=== PATIENT | female | born 1970 | race Caucasian/White ===

== ENCOUNTER → 2017-10-17 07:49 | Outpatient (CLI) | payer OTHER, SELFPAY ==
[2017-10-17 09:21] LABS: AST(SGOT) 12 U/L (15-37); Alanine Aminotransfer ALT/SGPT 35 U/L (13-56); Albumin, Serum 3.4 g/dL (3.2-5.0); Alkaline Phosphatase 69 U/L (45-117); Cholesterol 282 mg/dL (200); Globulin 3.9 g/dL (2.2-4.2); High Density Lipoprotein 37 mg/dL; Protein, Total 7.3 g/dL (6.4-8.2); Triglycerides 1469 mg/dL
== END ==
PROVIDERS: Family Provider Family Medicine; PCP Family Medicine; Visit Provider Internal Medicine Cardiovascular Disease
DX: E78.5 Hyperlipidemia, unspecified (principal); Z79.899 Other long term (current) drug therapy
CPT/HCPCS: 36415; 80061; 80076

== ENCOUNTER → 2018-02-13 08:18 | Outpatient (CLI) | payer OTHER, SELFPAY ==
[2018-02-13 09:19] LABS: AST(SGOT) 17 U/L (15-37); Alanine Aminotransfer ALT/SGPT 26 U/L (13-56); Albumin, Serum 3.5 g/dL (3.2-5.0); Alkaline Phosphatase 62 U/L (45-117); Bilirubin, Direct 0.12 mg/dL (0.00-0.30); Cholesterol 268 mg/dL (200); Globulin 3.7 g/dL (2.2-4.2); High Density Lipoprotein 34 mg/dL; Protein, Total 7.2 g/dL (6.4-8.2); Triglycerides 962 mg/dL
== END ==
PROVIDERS: Family Provider Family Medicine; PCP Family Medicine; Visit Provider Internal Medicine Cardiovascular Disease
DX: E78.5 Hyperlipidemia, unspecified (principal)
CPT/HCPCS: 36415; 80061; 80076

== ENCOUNTER → 2020-07-08 08:55 | Outpatient (CLI) | payer OTHER, SELFPAY ==
[2020-07-08 12:24] LABS: Absolute Lymphocyte Count 2.25 X10^3/uL (0.83-4.51); Absolute Neutrophil Count 2.4 X10^3/uL (2.0-7.7); Basophil# 0.08 X10^3/uL; Basophil% 1.4 % (0-1); Eosinophil# 0.49 X10^3/uL; Eosinophils% 8.6 % (0-5); Hematocrit 41.8 % (37-47); Hemoglobin 14.3 g/dL (12.0-15.0); Lymphocyte # 2.25 X10^3/ul (4.0); Lymphocyte % 39.3 % (19-41); Mean Corp Hgb Conc 34.2 g/dL (32-36); Mean Corpuscular Hgb 31.7 pg (27.0-32.0); Mean Corpuscular Volume 92.7 fL (81-99); Monocyte# 0.48 X10^3/uL; Monocyte% 8.4 % (0-10); NRBC Flagged by Analyzer 0 % (0-5); Neutrophil # 2.41 X10^3/uL (2.7-7.7); Platelet Count 212 K/mm3 (150-450); RBC Distribution Width CV 11.5 % (11.6-14.6); RBC Distribution Width SD 39.2 fl (35.1-43.9); Red Blood Count 4.51 M/mm3 (4.2-5.4); White Blood Count 5.7 K/mm3 (4.4-11.0)
[2020-07-08 13:03] LABS: Hemoglobin A1c 10.5 % (3.8-5.6)
[2020-07-08 13:10] LABS: ALB/GLOB Ratio 0.9 RATIO (0.9-2.4); AST(SGOT) 26 U/L (15-37); Alanine Aminotransfer ALT/SGPT 46 U/L (13-56); Albumin, Serum 3.7 g/dL (3.2-5.0); Alkaline Phosphatase 66 U/L (45-117); Anion Gap 9 (5-15); BUN 12 mg/dL (7-18); BUN/Creat Ratio 17.6 RATIO (10-20); Calcium,Total 8.9 mg/dL (8.5-10.1); Chloride 97 mmol/L (98-107); Cholesterol 287 mg/dL (200); Creatinine, Serum 0.68 mg/dL (0.55-1.02); EST Glomerular Filtration Rate 97 mL/min (>60); Est Glom Filt Rate - Afr Amer 117 mL/min (>60); Glucose 299 mg/dL (74-106); High Density Lipoprotein 41 mg/dL; Potassium 3.8 mmol/L (3.5-5.1); Protein, Total 7.7 g/dL (6.4-8.2); Rheumatoid Factor < 10.0 IU/mL (<15); Sodium Level 135 mmol/L (136-145); Thyroid Stim Hormone (TSH) 1.97 uIU/mL (0.358-3.74); Triglycerides 1210 mg/dL
[2020-07-08 13:22] LABS: Microalbumin:Creatinine Ratio 126.8 mg/g CRE (<30 mg/g CRE)
[2020-07-10 08:31] LABS: CCP IgG Antibodies 6 units (0-19)
== END ==
PROVIDERS: PCP Family Medicine; Visit Provider Family Medicine
DX: Z00.00 Encounter for general adult medical examination without abnormal findings (principal); E11.9 Type 2 diabetes mellitus without complications; R53.83 Other fatigue; M13.0 Polyarthritis, unspecified
CPT/HCPCS: 36415; 80053; 80061; 82043; 82570; 83036; 84443; 85025; 86200; 86431

== ENCOUNTER → 2021-10-28 | Outpatient (CLI) | payer OTHER, SELFPAY ==
[2021-10-28 13:20] LABS: Absolute Lymphocyte Count 1.72 X10^3/uL (0.83-4.51); Absolute Neutrophil Count 3.8 X10^3/uL (2.0-7.7); Basophil# 0.05 X10^3/uL; Basophil% 0.8 % (0-1); Eosinophil# 0.09 X10^3/uL; Eosinophils% 1.5 % (0-5); Hematocrit 38.9 % (37-47); Hemoglobin 13.6 g/dL (12.0-15.0); Lymphocyte # 1.72 X10^3/ul (0.83-4.51); Lymphocyte % 28.4 % (19-41); Mean Corpuscular Hgb 32.2 pg (27.0-32.0); Mean Platelet Vol. 10.6 fl (6.2-12.0); Monocyte# 0.42 X10^3/uL; Monocyte% 6.9 % (0-10); NRBC Flagged by Analyzer 0 % (0-5); Neutrophil # 3.75 X10^3/uL (2.7-7.7); Neutrophil % 61.9 % (47-70); Platelet Count 220 K/mm3 (150-450); RBC Distribution Width CV 12.7 % (11.6-14.6); RBC Distribution Width SD 42.5 fl (35.1-43.9); Red Blood Count 4.23 M/mm3 (4.2-5.4); White Blood Count 6.1 K/mm3 (4.4-11.0)
[2021-10-28 13:43] LABS: Color, Urine Yellow (Yellow); Glucose, Dipstick 1000 mg/dl (Normal); Leukocyte Esterase-Dipstick 25 /ul (Negative); Nitrite-Dipstick Negative (Negative); Occult Blood-Urine Negative /ul (Negative); Protein-Dipstick 30 mg/dl (Negative); Specific Gravity, Urine 1.025 (1.002-1.030); Urine Bilirubin Dipstick 3 mg/dL (Negative); Urine Clarity Sl. Cloudy (Clear); Urine Urobilinogen 1 mg/dl (Normal)
[2021-10-28 13:44] LABS: Ketone-Dipstick 150 mg/dl (Negative)
[2021-10-28 13:47] LABS: ALB/GLOB Ratio 0.8 RATIO (0.9-2.4); AST(SGOT) 539 U/L (15-37); Alanine Aminotransfer ALT/SGPT 816 U/L (13-56); Albumin, Serum 3.5 g/dL (3.2-5.0); Alkaline Phosphatase 698 U/L (45-117); Anion Gap 7 (5-15); BUN 13 mg/dL (7-18); BUN/Creat Ratio 20.6 RATIO (10-20); Calcium,Total 8.9 mg/dL (8.5-10.1); Chloride 98 mmol/L (98-107); Creatinine, Serum 0.63 mg/dL (0.55-1.02); EST Glomerular Filtration Rate 106 mL/min (>60); Est Glom Filt Rate - Afr Amer 128 mL/min (>60); Globulin 4.2 g/dL (2.2-4.2); Glucose 258 mg/dL (74-106); Potassium 3.3 mmol/L (3.5-5.1); Protein, Total 7.7 g/dL (6.4-8.2); Sodium Level 135 mmol/L (136-145)
[2021-10-30 08:09] LABS: HEPATITIS B SURFACE AG Negative (Negative); Hepatitis A IgM Antibody Negative (Negative); Hepatitis B Core AB IgM Negative (Negative)
[2021-10-30 15:40] LABS: Hep C Antibodies <0.1 s/co ratio (0.0-0.9)
== END | disposition home or self-care (01) ==
LOC: LAB 12:21
PROVIDERS: PCP Family Medicine; Referring Provider Family Medicine; Visit Provider Family Medicine
DX: R73.9 Hyperglycemia, unspecified (principal); E11.65 Type 2 diabetes mellitus with hyperglycemia; L29.9 Pruritus, unspecified; R82.998 Other abnormal findings in urine
CPT/HCPCS: 36415; 80053; 80074; 81002; 82533; 83036; 85025

== ENCOUNTER → 2021-11-03 | Outpatient (CLI) | payer OTHER, SELFPAY ==
--- NOTE | 2021-11-03 10:22 | US_ITS ---
STUDY: ABDOMINAL ULTRASOUND - RIGHT UPPER QUADRANT REASON FOR VISIT: Female, 51 years old NAUSEA ELEVATED LFT''S, NAUSEA, BLOATING, RECENT HEPATITIS, DIARRHEA, ITCHING TECHNIQUE: Ultrasound evaluation of the right upper quadrant was performed with real-time and static sanchez-scale imaging. TECHNICAL QUALITY: Adequate. COMPARISON: None. FINDINGS: Liver: The liver is enlarged and measures 19.5 cm. There is normal echogenicity of the liver. The bile ducts are within normal limits. There is hepatic color flow. The direction of portal flow is hepatopetal. There is no demonstrated mass lesion. Gallbladder: There is a distended gallbladder. The gallbladder wall is thickened and measures 5.9 mm. There is a negative sonographic Beasley''s sign. There is no pericholecystic fluid. There are no gallstones. Sludge is seen within the gallbladder lumen. Common Bile Duct (C.B.D.): The common bile duct measures 5.9 mm. Low-level echoes are seen within the distal portion of the common bile duct. Pancreas: There is a 6.4 cm x 7.8 cm x 4 cm hypoechoic mass in the head and body of the pancreas. Correlation with the CT scan recommended. Right Kidney: Normal size of the right kidney. The right kidney measures 12.8 cm x 6.2 cm x 5.3 cm. Normal renal cortex. The right cortex measures 1.4 cm. There is no demonstrated renal mass or cyst. There is no right hydronephrosis. I suspect a 6 mm x 6 mm calculus in the kidney. US/Abdomen Limited IMPRESSION: Large pancreatic mass as described. Correlation with the CT scan of the abdomen is recommended. Gallbladder wall thickening and sludge in the gallbladder lumen. Distended gallbladder. Hepatomegaly. Electronically Signed: Stalin Ross MD at 12:08 EDT ,
== END | disposition home or self-care (01) ==
PROVIDERS: PCP Family Medicine; Referring Provider Family Medicine; Visit Provider Family Medicine
DX: K75.9 Inflammatory liver disease, unspecified (principal); E11.65 Type 2 diabetes mellitus with hyperglycemia; R11.0 Nausea; R14.0 Abdominal distension (gaseous); L29.9 Pruritus, unspecified; R82.998 Other abnormal findings in urine
CPT/HCPCS: 76705

== ENCOUNTER → 2021-11-04 | Outpatient (CLI) | payer OTHER, SELFPAY ==
--- NOTE | 2021-11-04 18:49 | CT_ITS ---
STUDY: CT Abdomen And Pelvis W/ Contrast Injection 11/04/2021 8:14 PM REASON FOR EXAM: Female, 51 years old. PANCREATIC MASS TECHNIQUE: Transaxial images were obtained with oral contrast, and with IV 100mL [id number] intravenous contrast. Individualized dose optimization techniques were used for this CT. COMPARISON: None. FINDINGS: Multiple median sternotomy wires are noted consistent for cardiac surgery. There are coronary arterial calcifications. There is hepatomegaly with diffuse hepatic enlargement. There are multiple gallstones. Thickening and inflammation of the gallbladder. The overall findings concerning for cholecystitis. Unremarkable spleen. Unremarkable pancreas. Unremarkable bilateral adrenal glands. Non obstructive 2 mm right renal parenchymal stones. There are hypodensities in the left kidney. These are consistent for cysts. No follow up required. Unremarkable visualized stomach. Unremarkable small intestine. Unremarkable colon. There is non-visualization of the appendix. There are calcifications of the abdominal aorta. This is consistent for atherosclerotic disease. There is no abdominal aortic aneurysm. Unremarkable inferior vena cava. Subcentimeter mesenteric lymph nodes. Unremarkable urinary bladder. There is absence of the uterus consistent with a prior hysterectomy. There is a whirl pattern in the mesentery. This can suggest a mesenteric volvulus. An internal hernia can have a similar finding. Unremarkable abdominal wall. There are diffuse degenerative changes of the visualized lumbar spine. There is bilateral neural foraminal stenosis at L4-5 and L5-S1. CT/Abdomen/Pelvis WITH Contrast IMPRESSION: (NOT LISTED IN ORDER OF SIGNIFICANCE) There are multiple gallstones. Thickening and inflammation of the gallbladder. The overall findings are concerning for cholecystitis. There is hepatomegaly with diffuse hepatic enlargement. There is no pancreatic mass. Other findings as above. Electronically Signed: Andres Mcmahan MD at 20:18 EDT ,
== END | disposition home or self-care (01) ==
PROVIDERS: PCP Family Medicine; Visit Provider Family Medicine
DX: K86.89 Other specified diseases of pancreas (principal); K83.1 Obstruction of bile duct; R63.4 Abnormal weight loss; D49.0 Neoplasm of unspecified behavior of digestive system
CPT/HCPCS: 74177; Q9967

== ENCOUNTER → 2021-11-29 | Outpatient (CLI) | payer OTHER, SELFPAY ==
[2021-11-29 09:01] LABS: ALB/GLOB Ratio 0.8 RATIO (0.9-2.4); AST(SGOT) 54 U/L (15-37); Alanine Aminotransfer ALT/SGPT 276 U/L (13-56); Albumin, Serum 3.4 g/dL (3.2-5.0); Alkaline Phosphatase 403 U/L (45-117); Anion Gap 4 (5-15); BUN 11 mg/dL (7-18); CRP 2.91 mg/L (0.0-3.0); Calcium,Total 9.2 mg/dL (8.5-10.1); Chloride 98 mmol/L (98-107); Cholesterol 229 mg/dL (200); Creatinine, Serum 0.69 mg/dL (0.55-1.02); EST Glomerular Filtration Rate 95 mL/min (>60); Est Glom Filt Rate - Afr Amer 115 mL/min (>60); Globulin 4.1 g/dL (2.2-4.2); Glucose 282 mg/dL (74-106); High Density Lipoprotein 44 mg/dL; Protein, Total 7.5 g/dL (6.4-8.2); Sodium Level 135 mmol/L (136-145); Triglycerides 330 mg/dL; Very Low Density Lipoprotein 66 mg/dL (5-40)
== END | disposition home or self-care (01) ==
LOC: LAB 07:06
PROVIDERS: PCP Family Medicine; Referring Provider Surgery; Visit Provider Surgery
DX: R10.9 Unspecified abdominal pain (principal)
CPT/HCPCS: 36415; 80053; 80061; 86140

== ENCOUNTER → 2021-12-01 | Outpatient (CLI) | payer OTHER, SELFPAY ==
[2021-12-01 10:03] LABS: Amylase 30 U/L (25-115); Lipase 205 U/L (73-393)
== END | disposition home or self-care (01) ==
LOC: PAVLAB 09:18
PROVIDERS: PCP Family Medicine; Referring Provider Surgery; Visit Provider Surgery
DX: R93.5 Abnormal findings on diagnostic imaging of other abdominal regions, including retroperitoneum (principal); R74.8 Abnormal levels of other serum enzymes; K86.89 Other specified diseases of pancreas
CPT/HCPCS: 36415; 82150; 83690

== ENCOUNTER → 2021-12-05 | Outpatient (CLI) | payer OTHER, SELFPAY ==
--- NOTE | 2021-12-05 17:58 | MRI_ITS ---
STUDY: MR CHOLANGIOPANCREATOGRAPHY (MRCP) REASON FOR EXAM: Female, 51 years old. PAIN CBD STONES Technologist Notes Other, RECENT ULTRASOUND SHOWED MASS ON PANCREAS. CT SHOWED NO MASS, POSSIBLE GALLSTONES. SYMPTOMS ARE ITCHING AND ABNORMAL LABWORK. pancreatic mass TECHNIQUE: Standard MRCP technique was utilized. 3-D postprocessing images were obtained. COMPARISON: CT Nov 04 2021 7:00pm FINDINGS: Abnormal masslike fullness to the pancreatic head. No discrete mass. However given the findings of intrahepatic biliary dilation there is concern for an isointense pancreatic mass. Gall Bladder: Gallbladder wall thickening with sludge. Pericholecystic fluid. Findings suggest cholecystitis. Cystic duct: Normal with no demonstrated fixed filling defect. Intrahepatic ducts: There is intrahepatic ductal dilation. Common hepatic duct: Normal with no demonstrated fixed filling defect, dilation or stricture. Common bile duct: Normal with no demonstrated fixed filling defect, dilation or stricture. Pancreatic duct: Normal with no demonstrated fixed filling defect, dilation or stricture. MRI/MRCP Abdomen without Contrast IMPRESSION: Gallbladder wall thickening with sludge. Pericholecystic fluid. Findings suggest cholecystitis. Abnormal masslike fullness to the pancreatic head. No discrete mass. However given the findings of intrahepatic biliary dilation there is concern for an isointense pancreatic mass. ACR White Paper guidelines ([place] et al. JACR 2017; 14(7):911-923) suggest a contrast-enhanced, pancreas-protocol abdominal CT or MR WITH IV in 6 months or endoscopic ultrasound with fine needle aspiration. Electronically Signed: Andres Mcmahan MD at 20:06 EDT ,
== END | disposition home or self-care (01) ==
LOC: MRI 17:33
PROVIDERS: PCP Family Medicine; Visit Provider Surgery
DX: K86.89 Other specified diseases of pancreas (principal)
CPT/HCPCS: 74181

== ENCOUNTER → 2022-04-26 | Outpatient (CLI) | payer OTHER, SELFPAY | END | disposition home or self-care (01) | LOC: BFHLAB 09:03 | PROVIDERS: PCP Family Medicine; Visit Provider Family Medicine | DX: R53.83 Other fatigue (principal) | CPT/HCPCS: 36415; 82533 ==

== ENCOUNTER → 2022-06-09 | Outpatient (CLI) | payer OTHER, SELFPAY ==
[2022-06-09 10:41] LABS: Erythrocyte Sedimentation Rate 35 mm/hr (0-30)
[2022-06-09 10:42] LABS: Absolute Lymphocyte Count 2.24 X10^3/uL (0.83-4.51); Absolute Neutrophil Count 4.1 X10^3/uL (2.0-7.7); Basophil# 0.08 X10^3/uL; Basophil% 1.1 % (0-1); Eosinophil# 0.42 X10^3/uL; Eosinophils% 5.7 % (0-5); Hematocrit 39.1 % (37-47); Hemoglobin 14.5 g/dL (12.0-15.0); Lymphocyte # 2.24 X10^3/ul (0.83-4.51); Lymphocyte % 30.4 % (19-41); Mean Corp Hgb Conc 37.1 g/dL (32-36); Mean Corpuscular Hgb 32.7 pg (27.0-32.0); Mean Corpuscular Volume 88.3 fL (81-99); Mean Platelet Vol. 10.9 fl (6.2-12.0); Monocyte# 0.46 X10^3/uL; Monocyte% 6.2 % (0-10); NRBC Flagged by Analyzer 0 % (0-5); Neutrophil # 4.14 X10^3/uL (2.7-7.7); Neutrophil % 56.1 % (47-70); Platelet Count 219 K/mm3 (150-450); RBC Distribution Width CV 10.9 % (11.6-14.6); RBC Distribution Width SD 35.3 fl (35.1-43.9); Red Blood Count 4.43 M/mm3 (4.2-5.4); White Blood Count 7.4 K/mm3 (4.4-11.0)
[2022-06-09 11:15] LABS: ALB/GLOB Ratio 0.9 RATIO (0.9-2.4); AST(SGOT) 23 U/L (15-37); Alanine Aminotransfer ALT/SGPT 42 U/L (13-56); Albumin, Serum 3.7 g/dL (3.2-5.0); Alkaline Phosphatase 97 U/L (45-117); Anion Gap 9 (5-15); BUN 27 mg/dL (7-18); BUN/Creat Ratio 32.2 RATIO (10-20); CRP 3.71 mg/L (0.0-3.0); Chloride 91 mmol/L (98-107); Creatinine, Serum 0.84 mg/dL (0.55-1.02); EST Glomerular Filtration Rate 76 mL/min (>60); Est Glom Filt Rate - Afr Amer 92 mL/min (>60); Ferritin 411 ng/mL (8-252); Globulin 4.1 g/dL (2.2-4.2); Glucose 360 mg/dL (74-106); LDH 161 U/L (84-246); Potassium 3.4 mmol/L (3.5-5.1); Protein, Total 7.8 g/dL (6.4-8.2); Sodium Level 131 mmol/L (136-145)
[2022-06-12 16:08] LABS: Anti-Centromere B Ab <0.2 AI (0.0-0.9); Anti-Chromatin <0.2 AI (0.0-0.9); Anti-Jo <0.2 AI (0.0-0.9); Anti-Scleroderma-70 AB <0.2 AI (0.0-0.9); RNP Ab <0.2 AI (0.0-0.9); SJOGREN'S Anti-SS-A test < 0.2 AI (0.0-0.9); SJOGREN'S Anti-SS-B test < 0.2 AI (0.0-0.9); Smith Ab <0.2 AI (0.0-0.9)
[2022-06-13 01:06] LABS: IgG, Quant 1150 mg/dL (586-1602); Immunoglobulin A 156 mg/dL (87-352); Immunoglobulin G, Subclass 1 510 mg/dL (248-810); Immunoglobulin G, Subclass 2 454 mg/dL (130-555); Immunoglobulin G, Subclass 3 41 mg/dL (15-102)
[2022-06-13 16:00] LABS: Anti-Mitochondrial AB <20.0 Units (0.0-20.0); Anti-dsDNA Ab <1 IU/mL (0-9)
[2022-06-13 16:36] LABS: Endomysial Antibody IgA Negative (Negative); Immunoglobulin G, Subclass 4 180 mg/dL (2-96); t-Transglutaminase IgA <2 U/mL (0-3)
[2022-06-14 01:06] LABS: Albumin 3.6 g/dL (2.9-4.4); Alpha-1-Globulins 0.2 g/dL (0.0-0.4); Alpha-2-Globulins 1.2 g/dL (0.4-1.0); Angiotensin Convert Enzyme 57 U/L (14-82); Gamma Globulin 1.4 g/dL (0.4-1.8); HEPATITIS B SURFACE AG Negative (Negative); Hep C Antibodies <0.1 s/co ratio (0.0-0.9); Hepatitis A IgM Antibody Negative (Negative); Hepatitis B Core AB IgM Negative (Negative); Immunoglobulin A 156 mg/dL (87-352); Immunoglobulin E 54 IU/mL (6-495); Immunoglobulin G 1096 mg/dL (586-1602); Immunoglobulin M 81 mg/dL (26-217); PROEL- TOTAL PROTEIN 7.3 g/dL (6.0-8.5)
[2022-06-14 11:18] LABS: Anti-Smooth Muscle ABS 7 Units (0-19); Haptoglobin 116 mg/dL (33-346)
[2022-06-14 11:19] LABS: AFP, Tumor Marker 2.6 ng/mL (0.0-9.2); Copper, Serum or Plasma 105 ug/dL (80-158); Cytoplasmic Ab (C-ANCA) <1:20 titer (Neg:<1:20); Perinuclear Ab (P-ANCA) <1:20 titer (Neg:<1:20)
== END | disposition home or self-care (01) ==
PROVIDERS: PCP Family Medicine; Visit Provider Internal Medicine Gastroenterology
DX: K86.1 Other chronic pancreatitis (principal); E83.110 Hereditary hemochromatosis
CPT/HCPCS: 36415; 80053; 80074; 82105; 82164; 82390; 82525; 82728; 82784; 82785; 82787; 83010; 83516; 83615; 84165; 85025; 85652; 86140; 86225; 86235; 86255; 86256; 86334

== ENCOUNTER → 2022-06-21 | Outpatient (CLI) | payer OTHER, SELFPAY ==
--- NOTE | 2022-06-21 08:29 | US_ITS ---
STUDY: ABDOMINAL ULTRASOUND - ELASTOGRAPHY REASON FOR VISIT: Female, 51 years old. Chronic pancreatitis. Fatty infiltration of the liver. TECHNIQUE: Liver stiffness measurements were obtained on a IMVU RS 85 ultrasound machine using a CA 1-7 probe following the SRU guidelines. 3 measurements were obtained using a 2-D-SWE method. The IQR/M was 24% suggesting a quality data set. TECHNICAL QUALITY: Adequate. COMPARISON: Comparison is made with prior examination done earlier today. FINDINGS: Liver: Hepatomegaly and fatty infiltration of the liver. Median liver stiffness measured 7 kPa. US/Elastography Parenchyma/Organ IMPRESSION: Liver stiffness measures 7 kPa compatible with F2-F3 (Mild to moderate liver fibrosis) Metavir score. Electronically Signed: Stalin Ross MD at 10:16 EST ,
--- NOTE | 2022-06-21 08:29 | US_ITS ---
STUDY: ABDOMINAL ULTRASOUND - RIGHT UPPER QUADRANT REASON FOR VISIT: Female, 51 years old Pancreatitis TECHNIQUE: Ultrasound evaluation of the right upper quadrant was performed with real-time and static sanchez-scale imaging. TECHNICAL QUALITY: Adequate. COMPARISON: Comparison is made with prior study of 11/03/2021. FINDINGS: Liver: The liver is enlarged and measures 19.5 cm. There is increased echogenicity consistent with fatty infiltration. Focal fatty sparing is seen in the region of the gallbladder fossa. The bile ducts are within normal limits. There is hepatic color flow. The direction of portal flow is hepatopetal. There is no demonstrated mass lesion. Gallbladder: Normal distended gallbladder. The gallbladder wall is thickened and measures 5 mm. There is a negative sonographic Beasley''s sign. There is no pericholecystic fluid. There are no gallstones. Sludge is seen in the gallbladder lumen. Common Bile Duct (C.B.D.): The common bile duct measures 5 mm. Pancreas: Normal size of the head, body and tail of the pancreas. Annual echotexture of the pancreas. There is no demonstrated pancreatic mass or cyst. Right Kidney: Normal size of the right kidney. The right kidney measures 13.6 cm x 5.8 cm x 5 cm. Normal renal cortex. The right cortex measures 2.0 cm. There is no demonstrated renal mass or cyst. There is no right hydronephrosis. US/Abdomen Limited IMPRESSION: Hepatomegaly and fatty infiltration of the liver. Focal fatty sparing in the region of the gallbladder fossa. Thickening of the wall of the gallbladder with sludge. Heterogeneous appearance of the pancreas. Electronically Signed: Stalin Ross MD at 10:14 [facility] ,
== END | disposition home or self-care (01) ==
LOC: US 08:29
PROVIDERS: PCP Family Medicine; Referring Provider Internal Medicine Gastroenterology; Visit Provider Internal Medicine Gastroenterology
DX: K85.90 Acute pancreatitis without necrosis or infection, unspecified (principal)
CPT/HCPCS: 76705; 76981

== ENCOUNTER → 2022-12-21 | Outpatient (CLI) | payer OTHER, SELFPAY ==
[2022-12-21 17:11] LABS: Absolute Lymphocyte Count 2.29 X10^3/uL (0.83-4.51); Absolute Neutrophil Count 2.7 X10^3/uL (2.0-7.7); Basophil# 0.06 X10^3/uL; Eosinophil# 0.58 X10^3/uL; Eosinophils% 9.4 % (0-5); Hematocrit 34.8 % (37-47); Hemoglobin 12.3 g/dL (12.0-15.0); Lymphocyte # 2.29 X10^3/ul (0.83-4.51); Lymphocyte % 37.3 % (19-41); Mean Corp Hgb Conc 35.3 g/dL (32-36); Mean Corpuscular Hgb 32.1 pg (27.0-32.0); Mean Corpuscular Volume 90.9 fL (81-99); Mean Platelet Vol. 10.4 fl (6.2-12.0); Monocyte% 8.1 % (0-10); NRBC Flagged by Analyzer 0 % (0-5); Neutrophil # 2.68 X10^3/uL (2.7-7.7); Neutrophil % 43.7 % (47-70); Platelet Count 189 K/mm3 (150-450); RBC Distribution Width CV 11.7 % (11.6-14.6); RBC Distribution Width SD 38.1 fl (35.1-43.9); Red Blood Count 3.83 M/mm3 (4.2-5.4); White Blood Count 6.1 K/mm3 (4.4-11.0)
[2022-12-21 17:31] LABS: Erythrocyte Sedimentation Rate 10 mm/hr (0-30)
[2022-12-21 18:18] LABS: AST(SGOT) 15 U/L (15-37); Alanine Aminotransfer ALT/SGPT 20 U/L (13-56); Albumin, Serum 3.7 g/dL (3.2-5.0); Alkaline Phosphatase 46 U/L (45-117); Amylase 25 U/L (25-115); Anion Gap 5 (5-15); BUN 16 mg/dL (7-18); BUN/Creat Ratio 21.7 RATIO (10-20); CRP < 2.90 mg/L (0.0-3.0); Calcium,Total 9.1 mg/dL (8.5-10.1); Chloride 102 mmol/L (98-107); Creatinine, Serum 0.74 mg/dL (0.55-1.02); EST Glomerular Filtration Rate 88 mL/min (>60); Est Glom Filt Rate - Afr Amer 106 mL/min (>60); Free T3 2.2 pg/mL (2.18-3.98); Globulin 3.6 g/dL (2.2-4.2); Glucose 260 mg/dL (74-106); Lipase 16 U/L (13-75); Potassium 4.7 mmol/L (3.5-5.1); Protein, Total 7.3 g/dL (6.4-8.2); Sodium Level 139 mmol/L (136-145); T4 Free Direct 0.79 ng/dL (0.76-1.46); Thyroid Stim Hormone (TSH) 1.39 uIU/mL (0.358-3.74)
== END | disposition home or self-care (01) ==
LOC: LAB 16:49
PROVIDERS: PCP Family Medicine; Referring Provider Internal Medicine Gastroenterology; Visit Provider Internal Medicine Gastroenterology
DX: K83.09 Other cholangitis (principal); K86.1 Other chronic pancreatitis
CPT/HCPCS: 36415; 80053; 82150; 83690; 84439; 84443; 84481; 85025; 85652; 86140

== ENCOUNTER → 2023-01-03 | Outpatient (CLI) | payer OTHER, SELFPAY ==
--- NOTE | 2023-01-03 14:20 | RAD_ITS ---
STUDY: X-RAY BONE SURVEY COMPLETE REASON FOR EXAM: Female, 52 years old. MGUS TECHNIQUE: One view of the pelvis was obtained. views of the cervical spine were obtained. views of the thoracic spine were obtained. views of the lumbar spine were obtained. views of the femur. views of the humerus. : views of the skull were obtained. COMPARISON: None. FINDINGS: CHEST: The lungs are clear and expanded. There is no demonstrated pleural abnormality. Normal size heart. Normal mediastinum and olivia. Normal visualized pulmonary arteries. Normal visualized aortic arch and descending thoracic aorta. Normal visualized thoracic spine. Normal visualized ribs, clavicles, and shoulders. There is no demonstrated abnormality of the visualized soft tissue structures of the upper abdomen. PELVIS: There is a non-specific bowel gas pattern. Normal visualized soft tissue structures. Normal bilateral iliac wings, sacroiliac joints and visualized sacrum. Normal visualized bilateral superior and inferior pubic rami. Normal pubic symphysis. Normal ischial tuberosities. Normal visualized right femoral head. Normal right acetabulum. Normal right hip joint. Normal visualized left femoral head. Normal left acetabulum. Normal left hip joint. Calcific bursitis overlying the left greater trochanter. CERVICAL SPINE: Normal anterior atlantoaxial articulation. Normal odontoid process. Normal cervical lordosis. Normal vertebral bodies and endplates. Normal disc space heights. Normal visualized intervertebral neuroforamina. The soft tissue structures are unremarkable. THORACIC SPINE: Normal kyphosis of the thoracic spine. There is no substantial scoliosis. Normal thoracic vertebrae and endplates. There is multilevel disc space narrowing of the thoracic spine. The soft tissue structures are unremarkable. LUMBAR SPINE: Normal lumbar lordosis. There is no substantial scoliosis. There is a normal alignment of the vertebrae. Normal vertebral bodies and endplates. There is multi-level degenerative disc disease with multi-level disc space narrowing. The soft tissue structures are unremarkable. RIGHT FEMUR: Normal visualized femur. Normal visualized soft tissue structure. LEFT FEMUR: Normal visualized femur. Normal visualized soft tissue structure. RIGHT HUMERUS :Normal visualized humerus. There is no demonstrated fracture or osseous destructive process. There is no demonstrated soft tissue abnormality. LEFT HUMERUS:Normal visualized humerus. There is no demonstrated fracture or osseous destructive process. There is no demonstrated soft tissue abnormality. SKULL: There is no demonstrated soft tissue swelling. Normal osseous calvarium. Normal visualized facial bones. Normal visualized paranasal sinuses. RAD/Bone Survey Comp(Axial&Append) IMPRESSION: No destructive bony lesion is seen. Electronically Signed: Stalin Ross MD at 15:32 EDT ,
== END | disposition home or self-care (01) ==
LOC: RAD 13:56
PROVIDERS: PCP Family Medicine; Referring Provider Internal Medicine Medical Oncology; Visit Provider Internal Medicine Medical Oncology
DX: D47.2 Monoclonal gammopathy (principal)
CPT/HCPCS: 77075

== ENCOUNTER → 2023-02-26 | Outpatient (CLI) | payer OTHER, SELFPAY ==
[2023-02-26 18:01] LABS: Absolute Lymphocyte Count 2.29 X10^3/uL (0.83-4.51); Absolute Neutrophil Count 3.2 X10^3/uL (2.0-7.7); Basophil# 0.08 X10^3/uL; Basophil% 1.2 % (0-1); Eosinophil# 0.53 X10^3/uL; Hematocrit 38.3 % (37-47); Hemoglobin 13.3 g/dL (12.0-15.0); Lymphocyte # 2.29 X10^3/ul (0.83-4.51); Lymphocyte % 34.6 % (19-41); Mean Corp Hgb Conc 34.7 g/dL (32-36); Mean Corpuscular Hgb 31.6 pg (27.0-32.0); Mean Platelet Vol. 11.1 fl (6.2-12.0); Monocyte# 0.51 X10^3/uL; Monocyte% 7.7 % (0-10); NRBC Flagged by Analyzer 0 % (0-5); Neutrophil # 3.19 X10^3/uL (2.7-7.7); Neutrophil % 48.2 % (47-70); Platelet Count 222 K/mm3 (150-450); RBC Distribution Width CV 11.7 % (11.6-14.6); Red Blood Count 4.21 M/mm3 (4.2-5.4); White Blood Count 6.6 K/mm3 (4.4-11.0)
[2023-02-26 18:16] LABS: Erythrocyte Sedimentation Rate 7 mm/hr (0-30); Protein, Urine (Random) 13.1 mg/dL (<11.9); Protein:Creat Ratio 114 mg/g CRE (0-200)
[2023-02-26 18:47] LABS: ALB/GLOB Ratio 1.1 RATIO (0.9-2.4); AST(SGOT) 12 U/L (15-37); Alanine Aminotransfer ALT/SGPT 22 U/L (13-56); Alkaline Phosphatase 67 U/L (45-117); Anion Gap 8 (5-15); BUN 22 mg/dL (7-18); BUN/Creat Ratio 29.2 RATIO (10-20); CRP < 2.90 mg/L (0.0-3.0); Calcium,Total 9.7 mg/dL (8.5-10.1); Chloride 97 mmol/L (98-107); Creatinine, Serum 0.75 mg/dL (0.55-1.02); EST Glomerular Filtration Rate 86 mL/min (>60); Est Glom Filt Rate - Afr Amer 104 mL/min (>60); Globulin 3.7 g/dL (2.2-4.2); Glucose 243 mg/dL (74-106); Protein, Total 7.7 g/dL (6.4-8.2); Rheumatoid Factor < 10.0 IU/mL (<15); Sodium Level 136 mmol/L (136-145)
[2023-02-26 19:11] LABS: Hepatitis B Surface Antibody Non-Reactive; Hepatitis B Surface Antigen Non-Reactive (Nonreactive); Hepatitis C Antibody Non-Reactive (Nonreactive)
[2023-02-28 12:09] LABS: ANTINUCLEAR ANTIBODIES DIRECT Negative (Negative)
== END | disposition home or self-care (01) ==
PROVIDERS: PCP Family Medicine; Referring Provider Internal Medicine Rheumatology; Visit Provider Internal Medicine Rheumatology
DX: M06.4 Inflammatory polyarthropathy (principal); D89.89 Other specified disorders involving the immune mechanism, not elsewhere classified; I50.9 Heart failure, unspecified; E11.319 Type 2 diabetes mellitus with unspecified diabetic retinopathy without macular edema; K86.1 Other chronic pancreatitis; K83.09 Other cholangitis; I25.5 Ischemic cardiomyopathy; I25.10 Atherosclerotic heart disease of native coronary artery without angina pectoris; E78.5 Hyperlipidemia, unspecified
CPT/HCPCS: 36415; 80053; 82570; 82784; 82787; 84156; 84165; 85025; 85652; 86038; 86140; 86200; 86334; 86335; 86431; 86480; 86706; 86803; 87340

== ENCOUNTER → 2023-07-23 | Outpatient (CLI) | payer OTHER, SELFPAY ==
--- NOTE | 2023-07-23 11:15 | MRI_ITS ---
ACR Level 3 findings have been noted. An addendum which confirms receipt of the report will follow. MRCP without contrast 07/23/2023 12:05 PM COMPARISON: 12/05/2021 CLINICAL HISTORY: autoimmune cholangiopathy TECHNIQUE: Multiplanar and multisequence MR images of the abdomen were obtained with MRCP sequence. Three-dimensional post-processing reconstructions were performed. FINDINGS: Liver: Slightly nodular contour could represent early cirrhosis. Gallbladder: Unremarkable Bile Ducts: Beaded/irregular appearance of the extrahepatic and intrahepatic biliary ducts. The common bile duct is at the upper limits of normal measuring 6 mm in diameter. Pancreas: Redemonstration of slight fullness of the pancreatic head with no discrete mass. Spleen: Unremarkable Adrenal Glands: Unremarkable Kidneys: Mild left hydroureteronephrosis. GI Tract: Unremarkable Lymphadenopathy: Absent Ascites: Absent Bones: No suspicious lesions MRI/MRCP Abdomen without Contrast IMPRESSION: Beaded/irregular appearance of the extrahepatic and intrahepatic biliary ducts with slightly nodular liver contour is suspicious for primary sclerosing cholangitis. Correlate with lab markers. Mild left hydroureteronephrosis of unknown cause. Recommend CT abdomen/pelvis w/ and w/out contrast for further evaluation.. Redemonstration of slight fullness of the pancreatic head with no discrete mass. Again recommend contrast-enhanced, pancreas-protocol abdominal CT. Electronically Signed: Bill Pantoja MD at 0:23 EST ,
--- OUTSIDE RECORDS SUMMARY | 2023-07-23 12:25 | XMS RPT_ITS | CCD ---
Author Name Unknown Address [address] [place] [address] Organization [facility] Care Team Providers Care Heel Trimmer Name Role Phone Krysta Leiva MD Primary Care Provider DR REX LIRIANO DO A Primary Care Physician [phone] Pat Watson PT Unavailable Unavailable Rex Liriano DO A Primary Care Provider Norm Saenz Unavailable Norberto BRAGA, Hasmukh Unavailable Rex Liriano DO A Primary Care Provider Norm Saenz Unavailable Norberto BRAGA, Hasmukh Unavailable [phone] Rex Liriano DO A Primary Care Provider Norm Saenz Unavailable [phone] Norberto BRAGA, Hasmukh Unavailable HASMUKH THORNTON Referring Unavailable DEANDRA, REX A Primary Care Unavailable NORBERTO, HASMUKH Referring Unavailable DEANDRA, REX A Primary Care Unavailable NORBERTO, HASMUKH Referring Unavailable DEANDRA, REX A Primary Care Unavailable NORBERTO, HASMUKH Referring Unavailable DEANDRA, REX A Primary Care Unavailable NORBERTO, HASMUKH Referring Unavailable DEANDRA, REX A Primary Care Unavailable NORBRETO, HASMUKH Attending Unavailable DEANDRA, REX A Primary Care Unavailable DEANDRA, REX A Primary Care Unavailable CATHY QUIGLEY Referring Unavailable DEANDRA, REX A Primary Care Unavailable DEANDRA, REX A Primary Care Unavailable NROBERTO, HASMUKH Referring Unavailable NORBERTO, HASMUKH Referring Unavailable DEANDRA, REX A Primary Care Unavailable Krysta Leiva MD Unavailable [phone] Kelly Mar Unavailable Ignacio BRAGA, Baron W Unavailable Pallavi Guevara Unavailable Prudence SLIP PRESSERSommer Unavailable Unavailable Unavailable Unavailable Rosemarie SLIP PRESSERMaria C Unavailable Unavailable Unavailable Unavailable PHYSICIAN, NONE Primary Care Physician Unavailab sharee RICE, BOBBI Maxwell Attending Unava labsharee PHYSICIAN, NONE Primary Care Unavailable IRVIN RICE, BOBBI Maxwell Attending Patyva labsharee PHYSICIAN, NONE Primary Care Unavailable Max , Miguel Ángel Unavailable Bobbi Jain MA Unavailable Unavailable Allergies Allergy Classification Reported Allergen(s) Allergy Type Date of Onset Reaction(s) Facility (17 sources) diphenhydrAMINE; Translations: [DIPHENHYDRAMINE HCL] Drug Allergy 7 [facility] (17 sources) Lidocaine; Translations: [LIDOCAINE HCL] Drug Allergy 7 [facility] (20 sources) predniSONE; Translations: [prednisone] Drug Allergy 7 [facility] (19 sources) Tetracycline; Translations: [tetracycline] Drug Allergy 7 [facility] (2 sources) Cortisone; Translations: [cortisone] Drug Allergy Rash [facility] (4 sources) Lidocaine; Translations: [lidocaine] Drug Allergy Anaphylactic shock, due to adverse effect of correct medicinal substance properly administered (disorder) [facility] (17 sources) Vancomycin; Translations: [vancomycin] Drug Allergy 1 Other: See Comments [facility] Medications Current Medications Medication Drug Class(es) Dates Sig (Normalized) Sig (Original) Aspir 81 (2 sources) Start: 10-18-2010 take 1 tablet by mouth once daily Aspir 81 Dose : 81 mg =, Oral, qDay, tab(s), 0 Refill(s) Start Date: 10/18/10 Status: Ordered Completed/Discontinued Medications Medication Drug Class(es) Dates Sig (Normalized) Sig (Original) acetaminophen 500 mg / HYDROcodone bitartrate 5 mg oral tablet (20 sources) Opioid Agonist VICODIN, 5-500MG (Oral Tablet) 1 q 6-8 hours prn (5-500 MG) Inactive amoxicillin 875 mg / clavulanate 125 mg oral tablet (20 sources) Penicillin-class Antibacterial Start: 09-21-2014 End: 04-27-2015 take 1 tablet by mouth twice daily AUGMENTIN, 875-125MG (Oral Tablet) 1 Tablet BID for 0 days Quantity: 20 {Tablet} Refills: 0 Ordered: 27-Apr-2015 Vernell Griffin CMA Start : 21-Sep-2014 End : 27-Apr-2015 Inactive amphetamine aspartate 2.5 mg / amphetamine sulfate 2.5 mg / dextroamphetamine saccharate 2.5 mg / dextroamphetamine sulfate 2.5 mg oral tablet (20 sources) Central Nervous System Stimulant Start: 05-05-2010 End: 11-18-2010 take 1 tablet by mouth twice daily ADDERALL, 10MG (Oral Tablet) 1 Tablet bid for 0 days Quantity: 60 {Tablet} Refills: 0 Ordered: 18-Nov-2010 CORAZON Puentes LPN Start : 05-May-2010 End : 18-Nov-2010 Inactive aspirin 81 mg delayed release oral tablet (20 sources) Platelet Aggregation Inhibitor, Nonsteroidal Anti-inflammatory Drug Start: 10-18-2017 take 1 tablet by mouth once daily aspirin, enteric coated (ASPIRIN, ENTERIC COATED) 81 mg EC tablet Take 81 mg by mouth once daily. 0 10/18/2017 Active Problems Active Problems Problem Classification Problem Date Documented Da te Episodic/Chronic Abdominal hernia (20 sources) Incisional hernia; Translations: [Incisional hernia without obstruction or gangrene] Onset: 05-13-2010 Resolved: 04-10-2023 05-13-2010 Episodic Past or Other Problems Problem Classification Problem Date Documented Da te Episodic/Chronic Diabetes mellitus without complication (20 sources) Diabetes mellitus without complication Pancreatic disorders (not diabetes) (11 sources) Mass of pancreas; Translations: [Other specified diseases of pancreas] Onset: 01-31-2022 Episodic Unclassified (20 sources) Deliveries (Parity); Translations: [Deliveries (Parity)] 08-10-2015 Results Test Name Value Interpretation Reference Range Facil ity Vital Signs Date Time Vital Sign Value Performing Clinician Facility 05-04-2023 07:07-0400 Body temperature 96 [degF] Bobbi Belvidere MA [facility] Work Phone: 05-04-2023 07:07-0400 Body weight 106.6 kg Bobbi Jain MA [facility] Work Phone: 05-04-2023 07:07-0400 Diastolic blood pressure 78 mm[Hg] Bobbi Jain MA [facility] Work Phone: Encounters Encounter Date Encounter Type Care Provider Facility Start: 05-04-2023 End: 05-04-2023 Office outpatient visit 40 minutes Krysta Leiva MD Work Phone: [facility] Start: 04-16-2023 End: 04-16-2023 Prescription Refill Krysta Leiva MD Work Phone: [facility] Start: 04-13-2023 End: 04-13-2023 Office outpatient visit 40 minutes Krysta Leiva MD Work Phone: [facility] Start: 04-05-2023 End: 04-10-2023 Historical Summary Krysta Leiva MD Work Phone: [facility] Start: 04-05-2023 Review Krysta Kevin Work Phone: [facility] Start: 04-02-2023 End: 04-02-2023 Prescription Refill Krysta Leiva MD Work Phone: [facility] Start: 03-30-2023 End: 03-31-2023 ambulatory BOBBI RICE Facility:A Start: 03-30-2023 End: 03-30-2023 Patient encounter procedure BOBBI RICE [facility] Start: 03-27-2023 End: 03-27-2023 Annotation/Addendum Krysta Leiva MD Work Phone: [facility] Start: 03-20-2023 End: 03-20-2023 Lab Order Krysta Leiva MD Work Phone: [facility] Start: 03-20-2023 End: 03-20-2023 Office outpatient visit 25 minutes Krysta Leiva MD Work Phone: [facility] Start: 03-08-2023 End: 03-08-2023 Patient encounter procedure Krysta Leiva MD Work Phone: [facility] Internal Medicine Start: 06-17-2022 Orders Only Annalisa Roxi GAG WRITER.MACHINE REPAIR PERSON Work Phone: [facility] Start: 06-16-2022 End: 06-16-2022 [facility] Facility:[facility] Start: 06-16-2022 End: 06-16-2022 Patient encounter procedure Cathy Shoaib CHAN.MACHINE REPAIR PERSON Work Phone: [facility] Procedures Date Procedure Procedure Detail Performing Clinician Start: 01-11-2022 Ct abdomen & pelvis w/contrast material Hasmukh Thornton MD Work Phone: Start: 01-11-2022 Ct thorax w/contrast material Hasmukh Thornton MD Work Phone: Start: 09-23-2014 End: 09-23-2014 Breast Limited Unilateral Procedure Note: See Note; NOTES: [facility] Imaging Services [address] [place] [id number] Ultrasound Report MR#: [id number] Acct: [id number] Name: MOHAN LEZAMA Rep #: [id number] : 1970 F 44 From: Stalin Ross MD PCP: Krysta Leiva MD Status: REG CLI Study: Breast Limited Unilateral Date of Exam: 09/23/14 Exam# [id number] Ordering Dr: Annalise Connors STUDY: ULTRASOUND BREAST - LEFT REASON FOR EXAM: Female, 44 years old. Abnormal skin thickening. TECHNIQUE: Axial and longitudinal images of the LEFT breast were performed with a high resolution ultrasound transducer. COMPARISON: Comparison is made with prior mammogram done earlier in the day. FINDINGS: LEFT Breast: The inferior inner quadrant of the left breast was examined. There is an 8 mm x 6 mm x 7 mm hypoechoic nodule at the 10:00 position of the breast at 5 cm from the nipple. This also evidence of a 9 mm x 8 mm x 7 mm hypoechoic irregular nodule at the 9:00 position of the breast a 1 cm from the nipple. This has a tolerated and wider appearance. A biopsy is recommended for further evaluation. IMPRESSION: Hypoechoic irregular nodule at the 9:00 position the breast 1 cm from the nipple. A biopsy is recommended. ASSESSMENT CATEGORY: BIRADS Category 4: Suspicious - Biopsy Should Be Considered. A letter regarding these results will be sent to the patient by the facility within 30 days. Electronically Signed: Stalin Ross MD at 16:12 EDT Tel [phone], Service support [phone], CC: Krysta Leiva MD; OUT OF TOWN DOCTOR Furrier Apprentice: Signed Krysta Leiva MD Work Phone: Start: 09-23-2014 End: 09-23-2014 Bilat Diag Digital AND CAD Procedure Note: See Note; NOTES: [facility] Imaging Services [address] [place] [address] Breast Imaging Report MR#: [id number] Acct: [id number] Name: MOHAN LEZAMA Rep #: [id number] : 1970 F 44 From: Stalin Ross MD PCP: Krysta Leiva MD Status: REG CLI Study: Bilat Diag Digital AND CAD Date of Exam: 09/23/14 Exam# [id number] Ordering Dr: ELIGIO MIGUEL MAMMOGRAPHY - BILATERAL DIAGNOSTIC REASON FOR EXAM: Female, 44 years old. Recent bilateral axillary lymphadenopathy. Prior left stereotactic biopsy. PERTINENT HISTORY: Non-contributory. TECHNIQUE: Digital examination. Mediolateral oblique (MLO) and craniocaudad (CC) views of both breasts were obtained. CAD: CAD was performed on this study. COMPARISON: Comparison is made with prior study dated February 25, 2014. FINDINGS: Breast Composition: The breasts are heterogeneously dense, which may obscure small masses. There are no dominant masses or suspicious calcifications. Surgical clips are now seen in the axillary regions bilaterally. There now is evidence of skin thickening along the inferior medial aspect of the left breast. Correlation with ultrasound is recommended for further evaluation. No other significant abnormalities are identified. IMPRESSION: Stable bilateral diagnostic mammogram. Skin thickening as described. Correlation with ultrasound of the breast is recommended. ASSESSMENT CATEGORY: BIRADS Category 0: Incomplete. Need additional imaging evaluation. A letter regarding these results will be sent to the patient by the facility within 30 days. Approximately 10% of breast cancers are not detected by mammography. A normal mammogram should not delay biopsy of a clinically suspicious abnormality. Electronically Signed: Stalin Ross MD at 16:11 EDT Tel [phone], Service support [phone], CC: ELIGIO MIGUEL; Krysta Leiva MD Furrier Apprentice: Signed Krysta Leiva MD Work Phone: Start: 06-15-2014 End: 06-15-2014 Excision of lymph node Sommer Foss LPN Plan of Treatment Date Care Activity Detail Author Start: 02-13-2025 DIABETES SCREEN DIABETES SCREEN [facility] Start: 05-04-2023 Cortisol free CORTISOL FREE ([id number]) [facility] Work Phone: Payers Date Payer Category Payer Unknown [employer] PPO [id number] 2021-Present [phone] [address] [place] [address] PPO [id number] 2021 Unknown [id number] 2021 Unknown [id number] 1970 Unknown [id number] 1970 Unknown [id number] Social History Date Type Detail Facility Start: 10-29-2019 End: 06-16-2022 Tobacco smoking status NHIS Never smoked tobacco [facility] Start: 09-29-2010 End: 06-16-2022 Alcohol intake Current drinker of alcohol (finding) [facility] Start: 1970 Sex Assigned At Not on file [facility] Start: 1970 Sex Assigned At Female A [facility] Start: 12-05-2021 End: 01-12-2022 Exposure to SARS-CoV-2 (event) Not sure [facility] Start: 12-15-2021 End: 06-16-2022 Tobacco use and exposure Smokeless tobacco non-user [facility] Alcohol Use Alcohol Use [facility] Work Phone: Medical Equipment Procedure Code Equipment Code Equipment Origin al Text Equipment Identifier Dates FREESTYLE LANCET S (Miscellaneous) 1 Misc BID for 0 days Quantity: 100 {Misc} Refills: 3 Ordered: 20-Aug-2013 Janice Birmingham DO Start : 20-Aug-2013 Active Comments: dx 250.02 Start: 08-20-2013 Clinical Notes 10-30-2021 to 06-16-2022 Cathy Quigley APRN.SUSANNE - 06/16/2022 4:45 PM RT Blade(R) - 02/13/2022 8:40 AM Laura Thornton MD - 01/15/2022 7:03 PM EDTPatient InstructionsPatient InstructionsLaboratory Note Date & Type Note Facility 06-16-2022 Influenza virus A and B RNA and SARS-CoV-2 (COVID-19) N gene panel MANOHAR+probe (Resp) COVID 19 RESULT: SARS-CoV-2 (Agent of COVID-19) Not Detected by RT-PCR or equivalent method. krishna [id number] | [employer] (ELLIOTT)_EUA This test was developed and its performance characteristics determined by [facility]'s [facility] [place]. This test has been authorized by FDA under an Emergency Use Authorization (EUA). This test has been validated in accordance with the FDA's Guidance Document Policy for Diagnostics Testing in Laboratories Certified to Perform High Complexity Testing under CLIA prior to Emergency use Authorization for Coronavirus Disease 2019 during the Public Health Emergency issued on August 30, 2019. Test performed by [facility], [facility] [place], [address] [place] [address]. INFLUENZA A PCR: Positive for Influenza A by RT-PCR INFLUENZA B PCR: Negative for Influenza B by RT-PCR [facility] Pancreatic mass Unspecified disease of pancreas [facility] Diagnosis Mass of pancreas- Primary Unspecified disease of pancreas [facility]* Diagnosis Biliary obstruction Obstruction of bile duct Obstructive jaundice Other specified disorders of biliary tract Mass of pancreas Unspecified disease of pancreas Abnormal findings on diagnostic imaging of liver and biliary tract [facility] Diagnosis Mass of pancreas- Primary Unspecified disease of pancreas Biliary obstruction Obstruction of bile duct Obstructive jaundice Other specified disorders of biliary tract Abnormal findings on diagnostic imaging of liver and biliary tract [facility]* Diagnosis Biliary obstruction Obstruction of bile duct Obstructive jaundice Other specified disorders of biliary tract Mass of pancreas Unspecified disease of pancreas [facility]* Diagnosis Autoimmune cholangitis- Primary Cholangitis Biliary obstruction Obstruction of bile duct Obstructive jaundice Other specified disorders of biliary tract Mass of pancreas Unspecified disease of pancreas documented in this encounter [facility] note* Diagnosis Biliary obstruction Obstruction of bile duct Obstructive jaundice Other specified disorders of biliary tract Mass of pancreas Unspecified disease of pancreas Abnormal findings on diagnostic imaging of liver and biliary tract documented in this encounter [facility] note* Diagnosis Autoimmune cholangitis- Primary Cholangitis Mass of pancreas Unspecified disease of pancreas documented in this encounter [facility] note* Diagnosis Biliary obstruction Obstruction of bile duct Obstructive jaundice Other specified disorders of biliary tract Mass of pancreas Unspecified disease of pancreas Autoimmune cholangitis Cholangitis Mass of pancreas- Primary Unspecified disease of pancreas Biliary obstruction Obstruction of bile duct Obstructive jaundice Other specified disorders of biliary tract documented in this encounter [facility] note* Diagnosis Acute cough- Primary URI, acute Acute upper respiratory infections of unspecified site documented in this encounter [facility] course Narrative No data available for this section [facility] Discharge instructions No data available for this section [facility] Instructions* Name Dates Details How to access Trover Indication:DM (diabetes mellitus) type II uncontrolled with eye manifestation Start:27-Apr-2015 Instruction Type:Patient Education How to access Trover - Detail Indication:DM (diabetes mellitus) type II uncontrolled with eye manifestation Start:27-Apr-2015 Instruction Type:Patient Education Patient Instructions Indication:DM (diabetes mellitus) type II uncontrolled with eye manifestation Start:27-Apr-2015 Instruction Type:Provider Instructions for Treatment Patient Instructions Indication:Upper Respiratory Infection (Renamed from Infection of the upper respiratory tract) Start:21-Sep-2014 Instruction Type:Provider Instructions for Treatment How to access Trover Indication:DM (diabetes mellitus) type II uncontrolled with eye manifestation Start:23-Jun-2014 Instruction Type:Patient Education How to access Trover - Detail Indication:DM (diabetes mellitus) type II uncontrolled with eye manifestation Start:23-Jun-2014 Instruction Type:Patient Education Patient Instructions Indication:DM (diabetes mellitus) type II uncontrolled with eye manifestation Start:23-Jun-2014 Instruction Type:Provider Instructions for Treatment Patient Instructions Indication:Coronary artery disease, occlusive Start:30-Dec-2013 Instruction Type:Provider Instructions for Treatment Patient Instructions Indication:DM (diabetes mellitus) type II uncontrolled with eye manifestation Start:20-Aug-2013 Instruction Type:Provider Instructions for Treatment obesity counseling Indication:Obesity (Renamed from Obese) Start:20-Aug-2013 Instruction Type:Provider Instructions for Treatment [facility] Work Phone: instructions* Name Dates Details Patient Instructions Indication:BMI 39.0-39.9,adult Start:20-Mar-2023 Instruction Type:Provider Instructions for Treatment How to Access Health Informa tion Online using Patient Portal and [employer] Apps Indication:BMI 39.0-39.9,adult Start:20-Mar-2023 Instruction Type:Patient Education How to access health informa tion online Indication:DM (diabetes mellitus) type II uncontrolled with eye manifestation Start:27-Apr-2015 Instruction Type:Patient Education How to access health informa tion online - Detail Indication:DM (diabetes mellitus) type II uncontrolled with eye manifestation Start:27-Apr-2015 Instruction Type:Patient Education Patient Instructions Indication:DM (diabetes mellitus) type II uncontrolled with eye manifestation Start:27-Apr-2015 Instruction Type:Provider Instructions for Treatment Patient Instructions Indication:Upper Respiratory Infection (Renamed from Infection of the upper respiratory tract) Start:21-Sep-2014 Instruction Type:Provider Instructions for Treatment How to access health informa tion online Indication:DM (diabetes mellitus) type II uncontrolled with eye manifestation Start:23-Jun-2014 Instruction Type:Patient Education How to access health informa tion online - Detail Indication:DM (diabetes mellitus) type II uncontrolled with eye manifestation Start:23-Jun-2014 Instruction Type:Patient Education Patient Instructions Indication:DM (diabetes mellitus) type II uncontrolled with eye manifestation Start:23-Jun-2014 Instruction Type:Provider Instructions for Treatment Patient Instructions Indication:Coronary artery disease, occlusive Start:30-Dec-2013 Instruction Type:Provider Instructions for Treatment Patient Instructions Indication:DM (diabetes mellitus) type II uncontrolled with eye manifestation Start:20-Aug-2013 Instruction Type:Provider Instructions for Treatment obesity counseling Indication:Obesity (Renamed from Obese) Start:20-Aug-2013 Instruction Type:Provider Instructions for Treatment [facility] Work Phone: instructions* Name Dates Details Patient Instructions Indication:BMI 39.0-39.9,adult Start:20-Mar-2023 Instruction Type:Provider Instructions for Treatment How to Access Health Informa tion Online using Patient Portal and [employer] Apps Indication:BMI 39.0-39.9,adult Start:20-Mar-2023 Instruction Type:Patient Education How to access health informa tion online Indication:DM (diabetes mellitus) type II uncontrolled with eye manifestation Start:27-Apr-2015 Instruction Type:Patient Education How to access health informa tion online - Detail Indication:DM (diabetes mellitus) type II uncontrolled with eye manifestation Start:27-Apr-2015 Instruction Type:Patient Education Patient Instructions Indication:DM (diabetes mellitus) type II uncontrolled with eye manifestation Start:27-Apr-2015 Instruction Type:Provider Instructions for Treatment Patient Instructions Indication:Upper Respiratory Infection (Renamed from Infection of the upper respiratory tract) Start:21-Sep-2014 Instruction Type:Provider Instructions for Treatment How to access health informa tion online Indication:DM (diabetes mellitus) type II uncontrolled with eye manifestation Start:23-Jun-2014 Instruction Type:Patient Education How to access health informa tion online - Detail Indication:DM (diabetes mellitus) type II uncontrolled with eye manifestation Start:23-Jun-2014 Instruction Type:Patient Education Patient Instructions Indication:DM (diabetes mellitus) type II uncontrolled with eye manifestation Start:23-Jun-2014 Instruction Type:Provider Instructions for Treatment Patient Instructions Indication:Coronary artery disease, occlusive Start:30-Dec-2013 Instruction Type:Provider Instructions for Treatment Patient Instructions Indication:DM (diabetes mellitus) type II uncontrolled with eye manifestation Start:20-Aug-2013 Instruction Type:Provider Instructions for Treatment obesity counseling Indication:Obesity (Renamed from Obese) Start:20-Aug-2013 Instruction Type:Provider Instructions for Treatment [facility] Work Phone: Instructions* Name Dates Details Patient Instructions Indication:BMI 39.0-39.9,adult Start:20-Mar-2023 Instruction Type:Provider Instructions for Treatment How to Access Health Informa tion Online using Patient Portal and [employer] Apps Indication:BMI 39.0-39.9,adult Start:20-Mar-2023 Instruction Type:Patient Education How to access health informa tion online Indication:DM (diabetes mellitus) type II uncontrolled with eye manifestation Start:27-Apr-2015 Instruction Type:Patient Education How to access health informa tion online - Detail Indication:DM (diabetes mellitus) type II uncontrolled with eye manifestation Start:27-Apr-2015 Instruction Type:Patient Education Patient Instructions Indication:DM (diabetes mellitus) type II uncontrolled with eye manifestation Start:27-Apr-2015 Instruction Type:Provider Instructions for Treatment Patient Instructions Indication:Upper Respiratory Infection (Renamed from Infection of the upper respiratory tract) Start:21-Sep-2014 Instruction Type:Provider Instructions for Treatment How to access health informa tion online Indication:DM (diabetes mellitus) type II uncontrolled with eye manifestation Start:23-Jun-2014 Instruction Type:Patient Education How to access health informa tion online - Detail Indication:DM (diabetes mellitus) type II uncontrolled with eye manifestation Start:23-Jun-2014 Instruction Type:Patient Education Patient Instructions Indication:DM (diabetes mellitus) type II uncontrolled with eye manifestation Start:23-Jun-2014 Instruction Type:Provider Instructions for Treatment Patient Instructions Indication:Coronary artery disease, occlusive Start:30-Dec-2013 Instruction Type:Provider Instructions for Treatment Patient Instructions Indication:DM (diabetes mellitus) type II uncontrolled with eye manifestation Start:20-Aug-2013 Instruction Type:Provider Instructions for Treatment obesity counseling Indication:Obesity (Renamed from Obese) Start:20-Aug-2013 Instruction Type:Provider Instructions for Treatment [facility] Work Phone: Instructions* Name Dates Details Patient Instructions Indication:BMI 39.0-39.9,adult Start:20-Mar-2023 Instruction Type:Provider Instructions for Treatment How to Access Health Informa tion Online using Patient Portal and [employer] Apps Indication:BMI 39.0-39.9,adult Start:20-Mar-2023 Instruction Type:Patient Education How to access health informa tion online Indication:DM (diabetes mellitus) type II uncontrolled with eye manifestation Start:27-Apr-2015 Instruction Type:Patient Education How to access health informa tion online - Detail Indication:DM (diabetes mellitus) type II uncontrolled with eye manifestation Start:27-Apr-2015 Instruction Type:Patient Education Patient Instructions Indication:DM (diabetes mellitus) type II uncontrolled with eye manifestation Start:27-Apr-2015 Instruction Type:Provider Instructions for Treatment Patient Instructions Indication:Upper Respiratory Infection (Renamed from Infection of the upper respiratory tract) Start:21-Sep-2014 Instruction Type:Provider Instructions for Treatment How to access health informa tion online Indication:DM (diabetes mellitus) type II uncontrolled with eye manifestation Start:23-Jun-2014 Instruction Type:Patient Education How to access health informa tion online - Detail Indication:DM (diabetes mellitus) type II uncontrolled with eye manifestation Start:23-Jun-2014 Instruction Type:Patient Education Patient Instructions Indication:DM (diabetes mellitus) type II uncontrolled with eye manifestation Start:23-Jun-2014 Instruction Type:Provider Instructions for Treatment Patient Instructions Indication:Coronary artery disease, occlusive Start:30-Dec-2013 Instruction Type:Provider Instructions for Treatment Patient Instructions Indication:DM (diabetes mellitus) type II uncontrolled with eye manifestation Start:20-Aug-2013 Instruction Type:Provider Instructions for Treatment obesity counseling Indication:Obesity (Renamed from Obese) Start:20-Aug-2013 Instruction Type:Provider Instructions for Treatment [facility] Work Phone: Instructions* Name Dates Details Patient Instructions Indication:BMI 39.0-39.9,adult Start:20-Mar-2023 Instruction Type:Provider Instructions for Treatment How to Access Health Informa tion Online using Patient Portal and [employer] Apps Indication:BMI 39.0-39.9,adult Start:20-Mar-2023 Instruction Type:Patient Education How to access health informa tion online Indication:DM (diabetes mellitus) type II uncontrolled with eye manifestation Start:27-Apr-2015 Instruction Type:Patient Education How to access health informa tion online - Detail Indication:DM (diabetes mellitus) type II uncontrolled with eye manifestation Start:27-Apr-2015 Instruction Type:Patient Education Patient Instructions Indication:DM (diabetes mellitus) type II uncontrolled with eye manifestation Start:27-Apr-2015 Instruction Type:Provider Instructions for Treatment Patient Instructions Indication:Upper Respiratory Infection (Renamed from Infection of the upper respiratory tract) Start:21-Sep-2014 Instruction Type:Provider Instructions for Treatment How to access health informa tion online Indication:DM (diabetes mellitus) type II uncontrolled with eye manifestation Start:23-Jun-2014 Instruction Type:Patient Education How to access health informa tion online - Detail Indication:DM (diabetes mellitus) type II uncontrolled with eye manifestation Start:23-Jun-2014 Instruction Type:Patient Education Patient Instructions Indication:DM (diabetes mellitus) type II uncontrolled with eye manifestation Start:23-Jun-2014 Instruction Type:Provider Instructions for Treatment Patient Instructions Indication:Coronary artery disease, occlusive Start:30-Dec-2013 Instruction Type:Provider Instructions for Treatment Patient Instructions Indication:DM (diabetes mellitus) type II uncontrolled with eye manifestation Start:20-Aug-2013 Instruction Type:Provider Instructions for Treatment obesity counseling Indication:Obesity (Renamed from Obese) Start:20-Aug-2013 Instruction Type:Provider Instructions for Treatment [facility]; [facility] Work Phone: instructions* Name Dates Details Patient Instructions Indication:BMI 39.0-39.9,adult Start:20-Mar-2023 Instruction Type:Provider Instructions for Treatment How to Access Health Informa tion Online using Patient Portal and [employer] Apps Indication:BMI 39.0-39.9,adult Start:20-Mar-2023 Instruction Type:Patient Education How to access health informa tion online Indication:DM (diabetes mellitus) type II uncontrolled with eye manifestation Start:27-Apr-2015 Instruction Type:Patient Education How to access health informa tion online - Detail Indication:DM (diabetes mellitus) type II uncontrolled with eye manifestation Start:27-Apr-2015 Instruction Type:Patient Education Patient Instructions Indication:DM (diabetes mellitus) type II uncontrolled with eye manifestation Start:27-Apr-2015 Instruction Type:Provider Instructions for Treatment Patient Instructions Indication:Upper Respiratory Infection (Renamed from Infection of the upper respiratory tract) Start:21-Sep-2014 Instruction Type:Provider Instructions for Treatment How to access health informa tion online Indication:DM (diabetes mellitus) type II uncontrolled with eye manifestation Start:23-Jun-2014 Instruction Type:Patient Education How to access health informa tion online - Detail Indication:DM (diabetes mellitus) type II uncontrolled with eye manifestation Start:23-Jun-2014 Instruction Type:Patient Education Patient Instructions Indication:DM (diabetes mellitus) type II uncontrolled with eye manifestation Start:23-Jun-2014 Instruction Type:Provider Instructions for Treatment Patient Instructions Indication:Coronary artery disease, occlusive Start:30-Dec-2013 Instruction Type:Provider Instructions for Treatment Patient Instructions Indication:DM (diabetes mellitus) type II uncontrolled with eye manifestation Start:20-Aug-2013 Instruction Type:Provider Instructions for Treatment obesity counseling Indication:Obesity (Renamed from Obese) Start:20-Aug-2013 Instruction Type:Provider Instructions for Treatment [facility] Work Phone: instructions* Name Dates Details Patient Instructions Indication:BMI 39.0-39.9,adult Start:20-Mar-2023 Instruction Type:Provider Instructions for Treatment How to Access Health Informa tion Online using Patient Portal and [employer] Apps Indication:BMI 39.0-39.9,adult Start:20-Mar-2023 Instruction Type:Patient Education How to access health informa tion online Indication:DM (diabetes mellitus) type II uncontrolled with eye manifestation Start:27-Apr-2015 Instruction Type:Patient Education How to access health informa tion online - Detail Indication:DM (diabetes mellitus) type II uncontrolled with eye manifestation Start:27-Apr-2015 Instruction Type:Patient Education Patient Instructions Indication:DM (diabetes mellitus) type II uncontrolled with eye manifestation Start:27-Apr-2015 Instruction Type:Provider Instructions for Treatment Patient Instructions Indication:Upper Respiratory Infection (Renamed from Infection of the upper respiratory tract) Start:21-Sep-2014 Instruction Type:Provider Instructions for Treatment How to access health informa tion online Indication:DM (diabetes mellitus) type II uncontrolled with eye manifestation Start:23-Jun-2014 Instruction Type:Patient Education How to access health informa tion online - Detail Indication:DM (diabetes mellitus) type II uncontrolled with eye manifestation Start:23-Jun-2014 Instruction Type:Patient Education Patient Instructions Indication:DM (diabetes mellitus) type II uncontrolled with eye manifestation Start:23-Jun-2014 Instruction Type:Provider Instructions for Treatment Patient Instructions Indication:Coronary artery disease, occlusive Start:30-Dec-2013 Instruction Type:Provider Instructions for Treatment Patient Instructions Indication:DM (diabetes mellitus) type II uncontrolled with eye manifestation Start:20-Aug-2013 Instruction Type:Provider Instructions for Treatment obesity counseling Indication:Obesity (Renamed from Obese) Start:20-Aug-2013 Instruction Type:Provider Instructions for Treatment [facility] Work Phone: Instructions* Name Dates Details Patient Instructions Indication:BMI 39.0-39.9,adult Start:20-Mar-2023 Instruction Type:Provider Instructions for Treatment How to Access Health Informa tion Online using Patient Portal and [employer] Indication:BMI 39.0-39.9,adult Start:20-Mar-2023 Instruction Type:Patient Education How to access health informa tion online Indication:DM (diabetes mellitus) type II uncontrolled with eye manifestation Start:27-Apr-2015 Instruction Type:Patient Education How to access health informa tion online - Detail Indication:DM (diabetes mellitus) type II uncontrolled with eye manifestation Start:27-Apr-2015 Instruction Type:Patient Education Patient Instructions Indication:DM (diabetes mellitus) type II uncontrolled with eye manifestation Start:27-Apr-2015 Instruction Type:Provider Instructions for Treatment Patient Instructions Indication:Upper Respiratory Infection (Renamed from Infection of the upper respiratory tract) Start:21-Sep-2014 Instruction Type:Provider Instructions for Treatment How to access health informa tion online Indication:DM (diabetes mellitus) type II uncontrolled with eye manifestation Start:23-Jun-2014 Instruction Type:Patient Education How to access health informa tion online - Detail Indication:DM (diabetes mellitus) type II uncontrolled with eye manifestation Start:23-Jun-2014 Instruction Type:Patient Education Patient Instructions Indication:DM (diabetes mellitus) type II uncontrolled with eye manifestation Start:23-Jun-2014 Instruction Type:Provider Instructions for Treatment Patient Instructions Indication:Coronary artery disease, occlusive Start:30-Dec-2013 Instruction Type:Provider Instructions for Treatment Patient Instructions Indication:DM (diabetes mellitus) type II uncontrolled with eye manifestation Start:20-Aug-2013 Instruction Type:Provider Instructions for Treatment obesity counseling Indication:Obesity (Renamed from Obese) Start:20-Aug-2013 Instruction Type:Provider Instructions for Treatment [facility] Work Phone: Instructions* Name Dates Details Patient Instructions Indication:BMI 39.0-39.9,adult Start:20-Mar-2023 Instruction Type:Provider Instructions for Treatment How to Access Health Informa tion Online using Patient Portal and [employer] Indication:BMI 39.0-39.9,adult Start:20-Mar-2023 Instruction Type:Patient Education How to access health informa tion online Indication:DM (diabetes mellitus) type II uncontrolled with eye manifestation Start:27-Apr-2015 Instruction Type:Patient Education How to access health informa tion online - Detail Indication:DM (diabetes mellitus) type II uncontrolled with eye manifestation Start:27-Apr-2015 Instruction Type:Patient Education Patient Instructions Indication:DM (diabetes mellitus) type II uncontrolled with eye manifestation Start:27-Apr-2015 Instruction Type:Provider Instructions for Treatment Patient Instructions Indication:Upper Respiratory Infection (Renamed from Infection of the upper respiratory tract) Start:21-Sep-2014 Instruction Type:Provider Instructions for Treatment How to access health informa tion online Indication:DM (diabetes mellitus) type II uncontrolled with eye manifestation Start:23-Jun-2014 Instruction Type:Patient Education How to access health informa tion online - Detail Indication:DM (diabetes mellitus) type II uncontrolled with eye manifestation Start:23-Jun-2014 Instruction Type:Patient Education Patient Instructions Indication:DM (diabetes mellitus) type II uncontrolled with eye manifestation Start:23-Jun-2014 Instruction Type:Provider Instructions for Treatment Patient Instructions Indication:Coronary artery disease, occlusive Start:30-Dec-2013 Instruction Type:Provider Instructions for Treatment Patient Instructions Indication:DM (diabetes mellitus) type II uncontrolled with eye manifestation Start:20-Aug-2013 Instruction Type:Provider Instructions for Treatment obesity counseling Indication:Obesity (Renamed from Obese) Start:20-Aug-2013 Instruction Type:Provider Instructions for Treatment [facility] Work Phone: Instructions* Name Dates Details How to Access Health Informa tion Online using Patient Portal and [employer] Indication:Obesity (Renamed from Obese) Start:04-May-2023 Instruction Type:Patient Education Patient Instructions Indication:Obesity (Renamed from Obese) Start:04-May-2023 Instruction Type:Provider Instructions for Treatment Patient Instructions Indication:BMI 39.0-39.9,adult Start:20-Mar-2023 Instruction Type:Provider Instructions for Treatment How to Access Health Informa tion Online using Patient Portal and [employer] Indication:BMI 39.0-39.9,adult Start:20-Mar-2023 Instruction Type:Patient Education How to access health informa tion online Indication:DM (diabetes mellitus) type II uncontrolled with eye manifestation Start:27-Apr-2015 Instruction Type:Patient Education How to access health informa tion online - Detail Indication:DM (diabetes mellitus) type II uncontrolled with eye manifestation Start:27-Apr-2015 Instruction Type:Patient Education Patient Instructions Indication:DM (diabetes mellitus) type II uncontrolled with eye manifestation Start:27-Apr-2015 Instruction Type:Provider Instructions for Treatment Patient Instructions Indication:Upper Respiratory Infection (Renamed from Infection of the upper respiratory tract) Start:21-Sep-2014 Instruction Type:Provider Instructions for Treatment How to access health informa tion online Indication:DM (diabetes mellitus) type II uncontrolled with eye manifestation Start:23-Jun-2014 Instruction Type:Patient Education How to access health informa tion online - Detail Indication:DM (diabetes mellitus) type II uncontrolled with eye manifestation Start:23-Jun-2014 Instruction Type:Patient Education Patient Instructions Indication:DM (diabetes mellitus) type II uncontrolled with eye manifestation Start:23-Jun-2014 Instruction Type:Provider Instructions for Treatment Patient Instructions Indication:Coronary artery disease, occlusive Start:30-Dec-2013 Instruction Type:Provider Instructions for Treatment Patient Instructions Indication:DM (diabetes mellitus) type II uncontrolled with eye manifestation Start:20-Aug-2013 Instruction Type:Provider Instructions for Treatment obesity counseling Indication:Obesity (Renamed from Obese) Start:20-Aug-2013 Instruction Type:Provider Instructions for Treatment [facility] Work Phone: progress note No data available for this section [facility] Reason for referral (narrative)* Outpatient Procedure (Routine) - Closed Specialty Diagnoses / Procedures Referred By Contac t Referred To Contact [facility] Diagnoses Pancreatic mass Procedures EGD - THERAPEUTIC, EUS, OR TUBE INTERVENTIONS EDG US EXAM SURGICAL ALTER STOM DUODENUM/JEJUNUM Lori Velasquez MD [address] [place] [address] [facility] [place] [address] [place] [address] Referral ID Status Reason Start Date Expiration Date V isits Requested Visits Authorized [id number] Closed Auto-Generate d Referral 12/21/2021 07/01/2022 1 1 [facility] for referral (narrative)* Diagnostic Procedure Only (Routine) - Closed Specialty Diagnoses / Procedures Referred By Contac t Referred To Contact CT IMAGING Diagnoses Biliary obstruction Obstructive jaundice Mass of pancreas Autoimmune cholangitis Procedures CT PANCREAS/PELVIS W IVCON CT ABD & PELVIS W/CONTRAST Hasmukh Thornton MD [address] [address] [address] Imaging Referral ID Status Reason Start Date Expiration Date V isits Requested Visits Authorized [id number] Closed Auto-Generate d Referral 02/23/2022 07/01/2022 1 1 [facility] for visit Narrative* Outpatient Procedure (Routine) - Closed Specialty Diagnoses / Procedures Referred By Gemma jones Referred To Contact [facility] Diagnoses Pancreatic mass Procedures EGD - THERAPEUTIC, EUS, OR TUBE INTERVENTIONS EDG US EXAM SURGICAL ALTER STOM DUODENUM/JEJUNUM Lori Velasquez MD [address] [place] [address] [facility] [place] [address] [place] [address] Referral ID Status Reason Start Date Expiration Date V isits Requested Visits Authorized [id number] Closed Auto-Generate d Referral 12/21/2021 07/01/2022 1 1 [facility] for visit Narrative* Diagnostic Procedure Only (Routine) - Authorized Specialty Diagnoses / Procedures Referred By Gemma jones Referred To Contact Radiology / RADIO CT [facility]AN [facility] Diagnoses Biliary obstruction Obstructive jaundice Mass of pancreas Abnormal findings on diagnostic imaging of liver and biliary tract Biliary obstruction [K83.1] Obstructive jaundice [K83.1] Mass of pancreas [K86.89] Abnormal findings on diagnostic imaging of liver and biliary tract [R93.2] Procedures CT ABD & PELVIS W/CONTRAST CT WWO ABD2 400 Hasmukh Thornton MD [address] [place] [address] [facility] [address] [place] [address] Referral ID Status Reason Start Date Expiration Date V isits Requested Visits Authorized [id number] Authorized 01/06/2022 07/01/2022 1 1 [facility] Reason for Referral Specialty Diagnoses / Procedures Referred By Gemma jones Referred To Contact CT IMAGING Diagnoses Biliary obstruction Obstructive jaundice Mass of pancreas Abnormal findings on diagnostic imaging of liver and biliary tract Procedures CT PANCREAS/PELVIS W IVCON CT ABD & PELVIS W/CONTRAST Hasmukh Thornton MD [address] [place] [address] Ct Imaging Referral ID Status Reason Start Date Expiration Date Visits Requested Visits Authorized [id number] Authorized Auto-Generat ed Referral 01/06/2022 07/01/2022 1 1 Specialty Diagnoses / Procedures Referred By Contac t Referred To Contact CT IMAGING Diagnoses Biliary obstruction Obstructive jaundice Mass of pancreas Procedures CT CHEST W IVCON DIAGNOSTIC COMPUTED TOMOGRAPHY THORAX W/CONTRAST Hasmukh Thornton MD [address] [place] [address] Ct Imaging Referral ID Status Reason Start Date Expiration Date Visits Requested Visits Authorized [id number] Authorized Auto-Generat ed Referral 01/06/2022 07/01/2022 1 1 Specialty Diagnoses / Procedures Referred By Contac t Referred To Contact Gastroenterology Diagnoses Biliary obstruction Obstructive jaundice Mass of pancreas Procedures CONSULT TO GASTROENTEROLOGY Hasmukh Thornton MD [address] [place] [address] Lori Velasquez MD [address] [place] [address] Referral ID Status Reason Start Date Expiration Date Visits Requested Visits Authorized [id number] Ref Not Required PCP Requested Referral 12/15/2021 12/15/2022 1 1 Advance Directives Documents on File Type Date Recorded 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 Advance Directive(s) 12/26/2021 9:00 AM Documents on File Type Date Recorded 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 Advance Directive(s) 12/26/2021 9:00 AM Summary Purpose Family History Unknown Family Member Name Dates Details Father Comments:Heart disease Status:Active Unknown Family Member Name Dates Details Father Comments:Heart disease Status:Active Unknown Family Member Name Dates Details Father Comments:Heart disease Status:Active Unknown Family Member Name Dates Details Father Comments:Heart disease Status:Active Unknown Family Member Name Dates Details Father Comments:Heart disease Status:Active Unknown Family Member Name Dates Details Father Comments:Heart disease Status:Active Unknown Family Member Name Dates Details Father Comments:Heart disease Status:Active Unknown Family Member Name Dates Details Father Comments:Heart disease, hype rlipidemia, DMII alzheimer Status:Active Mother Comments:hyperlipidemika, HT N Status:Active Unknown Family Member Name Dates Details Father Comments:Heart disease, hype rlipidemia, DMII alzheimer Status:Active Mother Comments:hyperlipidemika, HT N Status:Active Unknown Family Member Name Dates Details Father Comments:Heart disease, hype rlipidemia, DMII alzheimer Status:Active Mother Comments:hyperlipidemika, HT N Status:Active Health Concerns Infection Onset Date Last Indicated Resolved Time COVID-19 Rule-Out 06/16/2022 06/16/2022 Infection Onset Date Last Indicated Resolved Time COVID-19 Rule-Out 06/16/2022 06/16/2022 06/17/2022 5:20 AM EST Additional Source Comments Source Comments (unrecognize d section and content) In the event this informatio n is protected by the Federal Confidentiality of Alcohol and Drug Abuse Patient Records regulations: The Federal rules restrict any use of the information to criminally investigate or prosecute any alcohol or drug abuse patient.[facility] the event this information is protected by the Federal Confidentiality of Alcohol and Drug Abuse Patient Records regulations: The Federal rules restrict any use of the information to criminally investigate or prosecute any alcohol or drug abuse patient.[facility] the event this information is protected by the Federal Confidentiality of Alcohol and Drug Abuse Patient Records regulations: The Federal rules restrict any use of the information to criminally investigate or prosecute any alcohol or drug abuse patient.[facility] the event this information is protected by the Federal Confidentiality of Alcohol and Drug Abuse Patient Records regulations: The Federal rules restrict any use of the information to criminally investigate or prosecute any alcohol or drug abuse patient.[facility] the event this information is protected by the Federal Confidentiality of Alcohol and Drug Abuse Patient Records regulations: The Federal rules restrict any use of the information to criminally investigate or prosecute any alcohol or drug abuse patient.[facility] the event this information is protected by the Federal Confidentiality of Alcohol and Drug Abuse Patient Records regulations: The Federal rules restrict any use of the information to criminally investigate or prosecute any alcohol or drug abuse patient.[facility] the event this information is protected by the Federal Confidentiality of Alcohol and Drug Abuse Patient Records regulations: The Federal rules restrict any use of the information to criminally investigate or prosecute any alcohol or drug abuse patient.[facility] the event this information is protected by the Federal Confidentiality of Alcohol and Drug Abuse Patient Records regulations: The Federal rules restrict any use of the information to criminally investigate or prosecute any alcohol or drug abuse patient.[facility] the event this information is protected by the Federal Confidentiality of Alcohol and Drug Abuse Patient Records regulations: The Federal rules restrict any use of the information to criminally investigate or prosecute any alcohol or drug abuse patient.[facility] the event this information is protected by the Federal Confidentiality of Alcohol and Drug Abuse Patient Records regulations: The Federal rules restrict any use of the information to criminally investigate or prosecute any alcohol or drug abuse patient.[facility] the event this information is protected by the Federal Confidentiality of Alcohol and Drug Abuse Patient Records regulations: The Federal rules restrict any use of the information to criminally investigate or prosecute any alcohol or drug abuse patient.[facility] Hospital[facility] the event this information is protected by the Federal Confidentiality of Alcohol and Drug Abuse Patient Records regulations: The Federal rules restrict any use of the information to criminally investigate or prosecute any alcohol or drug abuse patient.[facility] HospitalIn the event this information is protected by the Federal Confidentiality of Alcohol and Drug Abuse Patient Records regulations: The Federal rules restrict any use of the information to criminally investigate or prosecute any alcohol or drug abuse patient.[facility] Hospital[facility] the event this information is protected by the Federal Confidentiality of Alcohol and Drug Abuse Patient Records regulations: The Federal rules restrict any use of the information to criminally investigate or prosecute any alcohol or drug abuse patient.[facility] HospitalIn the event this information is protected by the Federal Confidentiality of Alcohol and Drug Abuse Patient Records regulations: The Federal rules restrict any use of the information to criminally investigate or prosecute any alcohol or drug abuse patient.[facility] HospitalIn the event this information is protected by the Federal Confidentiality of Alcohol and Drug Abuse Patient Records regulations: The Federal rules restrict any use of the information to criminally investigate or prosecute any alcohol or drug abuse patient.[facility] Reason for Visit (unrecogniz ed section and content) Reason Comments New Patient pancreatic mass Specialty Diagnoses / Procedures Referred By Gemma t Referred To Contact General Surgery / GENERAL SURGERY Diagnoses Pancreatic mass - refer from dr. mccarthy Procedures OFFICE/OUTPATIENT NEW MODERATE MDM 45-59 MINUTES NEW PATIENT Joni Mccarthy MD [address] [place] [address] Hasmukh Thornton MD [address] [address] Referral ID Status Reason Start Date Expiration Date V isits Requested Visits Authorized [id number] Authorized 07/02/2021 07/01/2022 20 20 Reason Comments Follow Up s/p eus Specialty Diagnoses / Procedures Referred By Contac t Referred To Contact General Surgery / GENERAL SURGERY Diagnoses f/u eus Procedures EST PATIENT Tejinder, Hasmukh Alejandro MD [address] [place] [address] Referral ID Status Reason Start Date Expiration Date Visits Re quested Visits Authorized [id number] Closed 01/04/2022 04/04/2022 [address] Specialty Diagnoses / Procedures Referred By Contac t Referred To Contact Radiology / RADIO CT [facility] Diagnoses Biliary obstruction Obstructive jaundice Mass of pancreas Biliary obstruction [K83.1] Obstructive jaundice [K83.1] Mass of pancreas [K86.89] Procedures DIAGNOSTIC COMPUTED TOMOGRAPHY THORAX W/CONTRAST CT ABD & PELVIS W/CONTRAST CT WWO CH 400 Hasmukh Thornton MD [address] Scan [facility] [address] [place] [address] Referral ID Status Reason Start Date Expiration Date Visits Re quested Visits Authorized [id number] Closed 01/11/2022 07/01/2022 1 1 Reason Comments Established Patient f/u ct scans Specialty Diagnoses / Procedures Referred By Contac t Referred To Contact General Surgery / GENERAL SURGERY Diagnoses F/U CT scans Procedures EST PATIENT Self, Hasmukh Alejandro MD [address] [address] Referral ID Status Reason Start Date Expiration Date Visits Re quested Visits Authorized [id number] Closed 01/12/2022 04/12/2022 1 [address] Specialty Diagnoses / Procedures Referred By Contac t Referred To Contact CT IMAGING Diagnoses Biliary obstruction Obstructive jaundice Mass of pancreas Autoimmune cholangitis Procedures CT PANCREAS/PELVIS W IVCON CT ABD & PELVIS W/CONTRAST Hasmukh Thornton MD [address] [address] [address] Imaging Referral ID Status Reason Start Date Expiration Date V isits Requested Visits Authorized [id number] Closed Auto-Generate d Referral 02/23/2022 07/01/2022 1 1 Reason Comments Cough Cough, bodyaches, ch est congestion x 1 month-ST x 1 day Specialty Diagnoses / Procedures Referred By Contac t Referred To Contact [facility] Diagnoses Examination Procedures OFFICE/OUTPATIENT ESTABLISHED MOD MDM 30-39 MIN MYC [facility] Self [facility] [address] [place] [address] Referral ID Status Reason Start Date Expiration Date Visits Re quested Visits Authorized [id number] Closed 06/16/2022 07/01/2022 1 1 Care Teams (unrecognized sec tion and content) Heel Trimmer Relationship Specialty Start Date End Date Rex Liriano [address] [place] [phone] PCP - General Family Practice 12/15/21 Dany Norm Mortensen [address] [place] [phone] Entry Level Manager Cardiology 12/15/21 Heel Trimmer Relationship Specialty Start Date End Date Rex LirianoDO [address] [place] [phone] PCP - General Family Practice 12/15/21 Norm Saenz [address] [place] [phone] Entry Level Manager Cardiology 12/15/21 Heel Trimmer Relationship Specialty Start Date End Date Rex LirianoDO [address] [place] [phone] PCP - General Family Practice 12/15/21 Dany Norm Mortensen [address] [place] [phone] Entry Level Manager Cardiology 12/15/21 Hasmukh Thornton MD [address] [place], [place] [id number] General Surgery 01/04/22 Heel Trimmer Relationship Specialty Start Date End Date Rex LirianoDO [address] [place] [address] PCP - General Family Practice 12/15/21 Norm Saenz Festus [address] [place] [phone] Entry Level Manager Cardiology 12/15/21 Hasmukh Thornton MD [address] [place], [place] [phone] General Surgery 01/04/22 Heel Trimmer Relationship Specialty Start Date End Date Rex Liriano DO [address] [place] [address] PCP - General Family Practice 12/15/21 Dany Norm Mortensen [address] [place] [phone] Entry Level Manager Cardiology 12/15/21 Hasmukh Thornton MD [address] [place], [place] [id number] General Surgery 01/04/22 Heel Trimmer Relationship Specialty Start Date End Date Rex Liriano DO [address] [place] [phone] PCP - General Family Practice 12/15/21 Norm Saenz [address] [place] [phone] Entry Level Manager Cardiology 12/15/21 Hasmukh Thornton MD [address] [place], [place] [phone] General Surgery 01/04/22 Heel Trimmer Relationship Specialty Start Date End Date Rex Liriano DO [address] [place] [address] PCP - General Family Practice 12/15/21 Dany Norm Mortensen [address] [place] [phone] Entry Level Manager Cardiology 12/15/21 Hasmukh Thornton MD [address] [place], [place] [id number] General Surgery 01/04/22 Heel Trimmer Relationship Specialty Start Date End Date Rex Liriano DO [address] [place] [address] PCP - General Family Practice 12/15/21 Norm Saenz [address] [place] [address] Entry Level Manager Cardiology 12/15/21 Hasmukh Thornton MD [address] [place], [place] [id number] General Surgery 01/04/22 Heel Trimmer Relationship Specialty Start Date End Date Rex Liriano DO [address] [place] [address] PCP - General Family Practice 12/15/21 Norm Saenz [address] [place] [address] Entry Level Manager Cardiology 12/15/21 Hasmukh Thornton MD [address] [place], [place] [id number] General Surgery 01/04/22 Heel Trimmer Relationship Specialty Start Date End Date Rxe Liriano DO [address] [place] [phone] PCP - General Family Practice 12/15/21 Norm Saenz [address] [place] [address] Entry Level Manager Cardiology 12/15/21 Hasmukh Thornton MD [address] [place], [place] [id number] General Surgery 01/04/22 Heel Trimmer Relationship Specialty Start Date End Date Rex Liriano DO [address] [place] [phone] PCP - General Family Practice 12/15/21 Norm Saenz [address] [place] [address] Entry Level Manager Cardiology 12/15/21 Hasmukh Thornton MD [address] [place], [place] [id number] General Surgery 01/04/22 Heel Trimmer Relationship Specialty Start Date End Date Rex Liriano DO [address] [place] [address] PCP - General Family Practice 12/15/21 Norm Saenz [address] [place] [address] Entry Level Manager Cardiology 12/15/21 Hasmukh Thornton MD [address] [place], [place] [id number] General Surgery 01/04/22 Heel Trimmer Relationship Specialty Start Date End Date Rex Liriano DO [address] [place] [phone] PCP - General Family Practice 12/15/21 Norm Saenz [address] [place] [address] Entry Level Manager Cardiology 12/15/21 Hasmukh Thornton MD [address] [place], [place] [id number] General Surgery 01/04/22 Heel Trimmer Relationship Specialty Start Date End Date Rex Liriano DO [address] [place] [address] PCP - General Family Medicine 12/15/21 Norm Saenz [address] [place] [address] Entry Level Manager Cardiology 12/15/21 Hasmukh Thornton MD [address] [place], [place] [id number] General Surgery 01/04/22 Heel Trimmer Relationship Specialty Start Date End Date DeandraRex baroneDO [address] [place] [address] PCP - General Family Medicine 12/15/21 Norm Saenz [address] [place] [address] Entry Level Manager Cardiology 12/15/21 Hasmukh Thornton MD [address] [place] [address] General Surgery 01/04/22 INFORMATION SOURCE (unrecogn ized section and content) DATE CREATED AUTHOR AUTHOR'S ORGANIZ ATION 06/23/2022 [facility] DATE CREATED AUTHOR AUTHOR'S ORGANIZ ATION 04/13/2023 [facility] ([place]) FOR RECORDS PERTAINING TO PATIENTS WHO ARE OR HAVE BEEN ENROLLED IN A CHEMICAL DEPENDENCY/SUBSTANCEABUSE PROGRAM, SOME INFORMATION MAY BE OMITTED. This clinical summary was aggregated from multiple sources. Caution should be exercised in using it in the provision of clinical care. This summary normalizes information from multiple sources, and as a consequence, information in this document may materially change the coding, format and clinical context of patient data. In addition, data may be omitted in some cases. CLINICAL DECISIONS SHOULD BE BASED ON THE PRIMARY CLINICAL RECORDS. [facility] [employer] [facility]. provides no warranty or guarantee of the accuracy or completeness of information in this document."
== END | disposition home or self-care (01) ==
PROVIDERS: PCP Internal Medicine; Referring Provider Internal Medicine Gastroenterology; Visit Provider Internal Medicine Gastroenterology
DX: K83.09 Other cholangitis (principal); K86.1 Other chronic pancreatitis
CPT/HCPCS: 74181

== ENCOUNTER → 2023-08-08 | Outpatient (CLI) | payer OTHER, SELFPAY ==
--- OUTSIDE RECORDS SUMMARY | 2023-08-08 06:55 | XMS RPT_ITS | CCD ---
Author Name Unknown Address [address] [place] [address] Organization [facility] Care Team Providers Care Door Repairer Bus Name Role Phone Krysta Leiva MD Primary Care Provider DR REX LIRIANO DO A Primary Care Physician [phone] Pat Watson PT Unavailable Unavailable Rex Liriano DO A Primary Care Provider Norm Saenz Unavailable Norberto BRAGA, Hasmukh Unavailable Rex Lriiano DO A Primary Care Provider Norm Saenz Unavailable Norberto BRAGA, Hasmukh Unavailable Rex Liriano DO A Primary Care Provider Norm Saenz Unavailable Norberto BRAGA, Hasmukh Unavailable HASMUKH THORNTON Referring Unavailable DEANDRA, REX A Primary Care Unavailable NORBERTO, HASMUKH Referring Unavailable DEANDRA, REX A Primary Care Unavailable NORBERTO, HASMUKH Referring Unavailable DEANDRA, REX A Primary Care Unavailable NORBERTO, HASMUKH Referring Unavailable DEANDRA, REX A Primary Care Unavailable NORBERTO, HASMUKH Referring Unavailable DEANDRA, REX A Primary Care Unavailable NORBERTO, HASMUKH Attending Unavailable DEANDRA, REX A Primary Care Unavailable DEANDRA, REX A Primary Care Unavailable CATHY QUIGLEY Referring Unavailable DEANDRA, REX A Primary Care Unavailable DEANDRA, REX A Primary Care Unavailable NORBERTO, HASMUKH Referring Unavailable NORBERTO, HASMUKH Referring Unavailable DEANDRA, REX A Primary Care Unavailable Krysta Leiva MD Unavailable Kelly Mar Unavailable Ignacio BRAGA, Baron W Unavailable [phone] Pallavi Guevara Unavailable Prudence WHEELABRATOR OPERATORSommer Unavailable Unavailable Unavailable Unavailable Rosemarie WHEELABRATOR OPERATORMaria C Unavailable Unavailable Unavailable Unavailable PHYSICIAN, NONE [...] diphenhydrAMINE; Translations: [DIPHENHYDRAMINE HCL] Drug Allergy 7 [facility] (17 sources) Lidocaine; Translations: [LIDOCAINE HCL] Drug Allergy 7 [facility] (20 sources) predniSONE; Translations: [prednisone] Drug Allergy 7 [facility] (19 sources) Tetracycline; Translations: [tetracycline] Drug Allergy 7 [facility] (2 sources) Cortisone; Translations: [cortisone] Drug Allergy Rash [facility] (4 sources) Lidocaine; Translations: [lidocaine] Drug Allergy Anaphylactic shock, due to adverse effect of correct medicinal substance properly administered (disorder) [facility] (17 sources) Vancomycin; Translations: [vancomycin] Drug Allergy 1 Other: See Comments [facility] Medications Current Medications Medication Drug Class(es) Dates [...] 05-04-2023 07:07-0400 Body temperature 96 [degF] Bobbi Panther MA [facility] Work Phone: 05-04-2023 07:07-0400 Body weight 106.6 kg Bobbi Jain MA [facility] Work Phone: 05-04-2023 07:07-0400 Diastolic blood pressure 78 mm[Hg] Bobbi Jain MA [facility]; [facility] Work Phone: [...] End: 03-30-2023 Patient encounter procedure BOBBI RICE [facility] Start: 03-27-2023 End: 03-27-2023 Annotation/Addendum Krysta Leiva MD Work Phone: [facility] Start: 03-20-2023 End: 03-20-2023 Lab Order Krysta Leiva MD Work Phone: [facility] Start: 03-20-2023 End: 03-20-2023 Office outpatient visit 25 minutes Krysta Leiva MD Work Phone: [facility] Start: 03-08-2023 End: 03-08-2023 Patient encounter procedure Krysta Leiva MD Work Phone: [facility] Start: 06-17-2022 Orders Only Annalisa Roxi CERTIFIED MEDICAL TECHNICIAN.[employer] Work Phone: [facility] Start: 06-16-2022 End: 06-16-2022 [facility] Facility:[facility] Start: 06-16-2022 End: 06-16-2022 Patient encounter procedure Cathy Shoaib CHAN.[employer] Work Phone: [facility] Procedures Date Procedure Procedure Detail Performing Clinician Start: 01-11-2022 Ct abdomen & pelvis w/contrast material Hasmukh Thornton MD Work Phone: Start: 01-11-2022 Ct thorax w/contrast material Hasmukh Thornton MD Work Phone: Start: 09-23-2014 End: 09-23-2014 Breast Limited Unilateral Procedure Note: See Note; NOTES: [facility] Imaging Services [address] [place] [address] Ultrasound Report MR#: [id number] Acct: [id number] Name: MOHAN LEZAMA Rep #: [id number] : 1970 F 44 From: Stalin Ross MD PCP: Krysta Leiva MD Status: REG CLI Study: Breast Limited Unilateral Date of Exam: 09/23/14 Exam# [id number] Ordering Dr: Annalise Connors STUDY: ULTRASOUND BREAST [...] Stalin Ross MD at 16:12 EDT Tel [phone], Service support [phone], CC: Krysta Leiva MD; OUT OF TOWN DOCTOR Plastic Duplicator: Signed Krysta Leiva MD Work Phone: Start: 09-23-2014 End: 09-23-2014 Bilat Diag Digital AND CAD Procedure Note: See Note; NOTES: [facility] Imaging Services [address] [place] [address] Breast Imaging Report MR#: [id number] Acct: [id number] Name: MOHAN LEZAMA Rep #: [id number] : 1970 F 44 From: Stalin Ross MD PCP: Krysta Leiva MD Status: REG CLI Study: Bilat Diag Digital AND CAD Date of Exam: 09/23/14 Exam# [id number] Ordering Dr: ELIGIO MIGUEL MAMMOGRAPHY - BILATERAL [...] Stalin Ross MD at 16:11 EDT Tel [phone], Service support [phone], CC: ELIGIO MIGUEL; Krysta Leiva MD Plastic Duplicator: Signed Krysta Leiva MD Work Phone: Start: 06-15-2014 End: 06-15-2014 Excision of lymph node Sommer Foss LPN Plan of Treatment Date Care Activity Detail Author Start: 02-13-2025 DIABETES SCREEN DIABETES SCREEN [facility] Start: 05-04-2023 Cortisol free CORTISOL FREE ([id number]) [facility] Work Phone: Payers Date Payer Category Payer Unknown [employer] PPO [id number] 2021-Present [phone] [address] [place] [address] PPO [id number] 2021 Unknown [id number] 2021 Unknown [id number] 1970 Unknown [id number] 1970 Unknown [id number] Social History Date Type Detail Facility Start: 10-29-2019 End: 06-16-2022 Tobacco smoking status NHIS Never smoked tobacco [facility] Start: 09-29-2010 End: 06-16-2022 Alcohol intake Current drinker of alcohol (finding) [facility] Start: 1970 Sex Assigned At Not on file C [facility] Start: 1970 Sex Assigned At Female A [facility] Start: 12-05-2021 End: 01-12-2022 Exposure to SARS-CoV-2 (event) Not sure [facility] Start: 12-15-2021 End: 06-16-2022 Tobacco use and exposure Smokeless tobacco non-user [facility] Alcohol Use Alcohol Use [facility] [...] Detected by RT-PCR or equivalent method. krishna [email or web address] (ELLIOTT)_EUA This test was developed and its performance characteristics determined by [facility]'s [facility] [place]. This test has been authorized by FDA under an Emergency Use Authorization (EUA). This test has been validated in accordance with the FDA's Guidance Document Policy for Diagnostics Testing in Laboratories Certified to Perform High Complexity Testing under CLIA prior to Emergency use Authorization for Coronavirus Disease 2019 during the Public Health Emergency issued on August 30, 2019. Test performed by [facility], [facility] [place], [address] [place] [address]. INFLUENZA A PCR: Positive for Influenza A by RT-PCR INFLUENZA B PCR: Negative for Influenza B by RT-PCR [facility] Diagnosis Pancreatic mass Unspecified disease of pancreas [facility] Diagnosis Mass of pancreas- Primary Unspecified disease of pancreas [facility] Diagnosis Biliary obstruction Obstruction of bile duct Obstructive jaundice Other specified disorders of biliary tract Mass of pancreas Unspecified disease of pancreas Abnormal findings on diagnostic imaging of liver and biliary tract [facility] Diagnosis Mass of pancreas- Primary Unspecified disease of pancreas Biliary obstruction Obstruction of bile duct Obstructive jaundice Other specified disorders of biliary tract Abnormal findings on diagnostic imaging of liver and biliary tract [facility] Diagnosis Biliary obstruction Obstruction of bile duct Obstructive jaundice Other specified disorders of biliary tract Mass of pancreas Unspecified disease of pancreas [facility] Diagnosis Autoimmune cholangitis- Primary Cholangitis Biliary obstruction Obstruction of bile duct Obstructive jaundice Other specified disorders of biliary tract Mass of pancreas Unspecified disease of pancreas documented in this encounter [facility] note* Diagnosis Biliary obstruction Obstruction of bile duct Obstructive jaundice Other specified disorders of biliary tract Mass of pancreas Unspecified disease of pancreas Abnormal findings on diagnostic imaging of liver and biliary tract documented in this encounter [facility] note* Diagnosis Autoimmune cholangitis- Primary Cholangitis Mass of pancreas Unspecified disease of pancreas documented in this encounter [facility] note* Diagnosis Biliary obstruction Obstruction of bile duct Obstructive jaundice Other specified disorders of biliary tract Mass of pancreas Unspecified disease of pancreas Autoimmune cholangitis Cholangitis Mass of pancreas- Primary Unspecified disease of pancreas Biliary obstruction Obstruction of bile duct Obstructive jaundice Other specified disorders of biliary tract documented in this encounter [facility] note* Diagnosis Acute cough- Primary URI, acute Acute upper respiratory infections of unspecified site documented in this encounter [facility] course Narrative No data available for this section [facility] Discharge instructions No data available for this section [facility] Instructions* Name Dates Details How to access [employer] Indication:DM (diabetes mellitus) type II uncontrolled with eye manifestation Start:27-Apr-2015 Instruction Type:Patient Education How to access [employer] - Detail Indication:DM (diabetes mellitus) type II uncontrolled with eye manifestation Start:27-Apr-2015 Instruction Type:Patient Education Patient Instructions Indication:DM (diabetes mellitus) type II uncontrolled with eye manifestation Start:27-Apr-2015 Instruction Type:Provider Instructions for Treatment Patient Instructions Indication:Upper Respiratory Infection (Renamed from Infection of the upper respiratory tract) Start:21-Sep-2014 Instruction Type:Provider Instructions for Treatment How to access [employer] Indication:DM (diabetes mellitus) type II uncontrolled with eye manifestation Start:23-Jun-2014 Instruction Type:Patient Education How to access [employer] - Detail Indication:DM (diabetes mellitus) type II [...] Informa tion Online using Patient Portal and [employer] Indication:BMI 39.0-39.9,adult Start:20-Mar-2023 Instruction Type:Patient Education [...] Informa tion Online using Patient Portal and [employer] Apps Indication:BMI 39.0-39.9,adult Start:20-Mar-2023 Instruction Type:Patient Education [...] Informa tion Online using Patient Portal and [employer] Indication:BMI 39.0-39.9,adult Start:20-Mar-2023 Instruction Type:Patient Education [...] Informa tion Online using Patient Portal and [employer] Indication:BMI 39.0-39.9,adult Start:20-Mar-2023 Instruction Type:Patient Education [...] Informa tion Online using Patient Portal and [employer] Indication:BMI 39.0-39.9,adult Start:20-Mar-2023 Instruction Type:Patient Education [...] Informa tion Online using Patient Portal and [employer] Indication:BMI 39.0-39.9,adult Start:20-Mar-2023 Instruction Type:Patient Education [...] tion Online using Patient Portal and [employer] Indication:BMI 39.0-39.9,adult Start:20-Mar-2023 Instruction Type:Patient Education [...] tion Online using Patient Portal and [employer] Indication:BMI 39.0-39.9,adult Start:20-Mar-2023 Instruction Type:Patient Education [...] tion Online using Patient Portal and [employer] Indication:BMI 39.0-39.9,adult Start:20-Mar-2023 Instruction Type:Patient Education [...] Informa tion Online using Patient Portal and [employer] Indication:Obesity (Renamed from Obese) Start:04-May-2023 Instruction Type:Patient Education Patient Instructions Indication:Obesity (Renamed from Obese) Start:04-May-2023 Instruction Type:Provider Instructions for Treatment Patient Instructions Indication:BMI 39.0-39.9,adult Start:20-Mar-2023 Instruction Type:Provider Instructions for Treatment How to Access Health Informa tion Online using Patient Portal and [employer] Apps Indication:BMI 39.0-39.9,adult Start:20-Mar-2023 Instruction Type:Patient Education [...] note No data available for this section [facility] Reason for referral (narrative)* Outpatient Procedure (Routine) - Closed Specialty Diagnoses / Procedures Referred By Contac t Referred To Contact [facility] Diagnoses Pancreatic mass Procedures EGD - THERAPEUTIC, EUS, OR TUBE INTERVENTIONS EDG US EXAM SURGICAL ALTER STOM DUODENUM/JEJUNUM Lori Velasquez MD [address] [place] [address] [facility] [place] [address] [place] [address] Referral ID Status Reason Start Date Expiration Date V isits Requested Visits Authorized [id number] Closed Auto-Generate d Referral 12/21/2021 07/01/2022 1 1 [facility] for referral (narrative)* Diagnostic Procedure Only (Routine) - Closed Specialty Diagnoses / Procedures Referred By Contac t Referred To Contact CT IMAGING Diagnoses Biliary obstruction Obstructive jaundice Mass of pancreas Autoimmune cholangitis Procedures CT PANCREAS/PELVIS W IVCON CT ABD & PELVIS W/CONTRAST Hasmukh Thornton MD [address] [address] [address] Imaging Referral ID Status Reason Start Date Expiration Date V isits Requested Visits Authorized [id number] Closed Auto-Generate d Referral 02/23/2022 07/01/2022 1 1 [facility] for visit Narrative* Outpatient Procedure (Routine) - Closed Specialty Diagnoses / Procedures Referred By Gemma jones Referred To Contact [facility] Diagnoses Pancreatic mass Procedures EGD - THERAPEUTIC, EUS, OR TUBE INTERVENTIONS EDG US EXAM SURGICAL ALTER STOM DUODENUM/JEJUNUM Lori Velasquez MD [address] [place] [address] [facility] [place] [address] [place] [address] Referral ID Status Reason Start Date Expiration Date V isits Requested Visits Authorized [id number] Closed Auto-Generate d Referral 12/21/2021 07/01/2022 1 1 [facility] for visit Narrative* Diagnostic Procedure Only (Routine) - Authorized Specialty Diagnoses / Procedures Referred By Gemma jones Referred To Contact Radiology / RADIO CT SCAN [facility] Diagnoses Biliary obstruction Obstructive jaundice Mass of pancreas Abnormal findings on diagnostic imaging of liver and biliary tract Biliary obstruction [K83.1] Obstructive jaundice [K83.1] Mass of pancreas [K86.89] Abnormal findings on diagnostic imaging of liver and biliary tract [R93.2] Procedures CT ABD & PELVIS W/CONTRAST CT WWO ABD2 400 Hasmukh Thornton MD [address] [place] [address] [facility] [address] [place] [address] Referral ID Status Reason Start Date Expiration Date V isits Requested Visits Authorized [id number] Authorized 01/06/2022 07/01/[address] [facility] Reason for Referral Specialty Diagnoses / Procedures Referred By Gemma jones Referred To Contact CT IMAGING Diagnoses Biliary obstruction Obstructive jaundice Mass of pancreas Abnormal findings on diagnostic imaging of liver and biliary tract Procedures CT PANCREAS/PELVIS W IVCON CT ABD & PELVIS W/CONTRAST Hasmukh Thornton MD [address] [place] [address] Ct Imaging Referral ID Status Reason Start Date Expiration Date Visits Requested Visits Authorized [id number] Authorized Auto-Generat ed Referral 01/06/2022 07/01/2022 1 1 Specialty Diagnoses / Procedures Referred By Contac t Referred To Contact CT IMAGING Diagnoses Biliary obstruction Obstructive jaundice Mass of pancreas Procedures CT CHEST W IVCON DIAGNOSTIC COMPUTED TOMOGRAPHY THORAX W/CONTRAST Hasmukh Thornton MD [address] [place] [address] Ct Imaging Referral ID Status Reason Start Date Expiration Date Visits Requested Visits Authorized [id number] Authorized Auto-Generat ed Referral 01/06/2022 07/01/2022 1 1 Specialty Diagnoses / Procedures Referred By Contac t Referred To Contact Gastroenterology Diagnoses Biliary obstruction Obstructive jaundice Mass of pancreas Procedures CONSULT TO GASTROENTEROLOGY Hasmukh Thornton MD [address] [place] [address] Lori Velasquez MD [address] [place] [address] Referral ID Status Reason Start Date Expiration Date Visits Requested Visits Authorized [id number] Ref Not Required PCP Requested Referral 12/15/2021 12/15/2022 1 1 Advance Directives Documents on File Type Date Recorded Patient Slab Worker Expl anation Advance Directive(s) 12/26/2021 9:00 AM Documents on File Type Date Recorded Patient Slab Worker Expl anation Advance Directive(s) 12/26/2021 9:00 AM [...] or prosecute any alcohol or drug abuse patient.[facility] the event this information is protected by the Federal Confidentiality of Alcohol and Drug Abuse Patient Records regulations: The Federal rules restrict any use of the information to criminally investigate or prosecute any alcohol or drug abuse patient.[facility] the event this information is protected by the Federal Confidentiality of Alcohol and Drug Abuse Patient Records regulations: The Federal rules restrict any use of the information to criminally investigate or prosecute any alcohol or drug abuse patient.[facility] the event this information is protected by the Federal Confidentiality of Alcohol and Drug Abuse Patient Records regulations: The Federal rules restrict any use of the information to criminally investigate or prosecute any alcohol or drug abuse patient.[facility] the event this information is protected by the Federal Confidentiality of Alcohol and Drug Abuse Patient Records regulations: The Federal rules restrict any use of the information to criminally investigate or prosecute any alcohol or drug abuse patient.[facility] the event this information is protected by the Federal Confidentiality of Alcohol and Drug Abuse Patient Records regulations: The Federal rules restrict any use of the information to criminally investigate or prosecute any alcohol or drug abuse patient.[facility] the event this information is protected by the Federal Confidentiality of Alcohol and Drug Abuse Patient Records regulations: The Federal rules restrict any use of the information to criminally investigate or prosecute any alcohol or drug abuse patient.[facility] the event this information is protected by the Federal Confidentiality of Alcohol and Drug Abuse Patient Records regulations: The Federal rules restrict any use of the information to criminally investigate or prosecute any alcohol or drug abuse patient.[facility] the event this information is protected by the Federal Confidentiality of Alcohol and Drug Abuse Patient Records regulations: The Federal rules restrict any use of the information to criminally investigate or prosecute any alcohol or drug abuse patient.[facility] the event this information is protected by the Federal Confidentiality of Alcohol and Drug Abuse Patient Records regulations: The Federal rules restrict any use of the information to criminally investigate or prosecute any alcohol or drug abuse patient.[facility] the event this information is protected by the Federal Confidentiality of Alcohol and Drug Abuse Patient Records regulations: The Federal rules restrict any use of the information to criminally investigate or prosecute any alcohol or drug abuse patient.[facility] the event this information is protected by the Federal Confidentiality of Alcohol and Drug Abuse Patient Records regulations: The Federal rules restrict any use of the information to criminally investigate or prosecute any alcohol or drug abuse patient.[facility] the event this information is protected by the Federal Confidentiality of Alcohol and Drug Abuse Patient Records regulations: The Federal rules restrict any use of the information to criminally investigate or prosecute any alcohol or drug abuse patient.[facility] the event this information is protected by the Federal Confidentiality of Alcohol and Drug Abuse Patient Records regulations: The Federal rules restrict any use of the information to criminally investigate or prosecute any alcohol or drug abuse patient.[facility] the event this information is protected by the Federal Confidentiality of Alcohol and Drug Abuse Patient Records regulations: The Federal rules restrict any use of the information to criminally investigate or prosecute any alcohol or drug abuse patient.[facility] the event this information is protected by the Federal Confidentiality of Alcohol and Drug Abuse Patient Records regulations: The Federal rules restrict any use of the information to criminally investigate or prosecute any alcohol or drug abuse patient.[facility] Reason for Visit (unrecogniz ed section and content) Reason Comments New Patient pancreatic mass Specialty Diagnoses / Procedures Referred By Gemma t Referred To Contact General Surgery / GENERAL SURGERY Diagnoses Pancreatic mass - refer from dr. mccarthy Procedures OFFICE/OUTPATIENT NEW MODERATE MDM 45-59 MINUTES NEW PATIENT Joni Mccarthy MD [address] [place] [address] Hasmukh Thornton MD [address] [address] Referral ID Status Reason Start Date Expiration Date V isits Requested Visits Authorized [id number] Authorized 07/02/2021 07/01/2022 20 20 Reason Comments Follow Up s/p eus Specialty Diagnoses / Procedures Referred By Contac t Referred To Contact General Surgery / GENERAL SURGERY Diagnoses f/u eus Procedures EST PATIENT Tejinder, Hasmukh Alejandro MD [address] [place] [address] Referral ID Status Reason Start Date Expiration Date Visits Re quested Visits Authorized [id number] Closed 01/04/2022 04/04/2022 1 [address] Specialty Diagnoses / Procedures Referred By Contac t Referred To Contact Radiology / RADIO CT SCAN [facility] Diagnoses Biliary obstruction Obstructive jaundice Mass of pancreas Biliary obstruction [K83.1] Obstructive jaundice [K83.1] Mass of pancreas [K86.89] Procedures DIAGNOSTIC COMPUTED TOMOGRAPHY THORAX W/CONTRAST CT ABD & PELVIS W/CONTRAST CT WWO CH 400 Hasmukh Thornton MD [address] Scan [facility] [address] [place] [address] Referral ID Status Reason Start Date Expiration Date Visits Re quested Visits Authorized [id number] Closed 01/11/2022 07/01/2022 1 1 Reason Comments Established Patient f/u ct scans Specialty Diagnoses / Procedures Referred By Contac t Referred To Contact General Surgery / GENERAL SURGERY Diagnoses F/U CT scans Procedures EST PATIENT Self, Hasmukh Alejandro MD [address] [address] Referral ID Status Reason Start Date Expiration Date Visits Re quested Visits Authorized [id number] Closed 01/12/2022 04/12/2022 [address] Specialty Diagnoses / Procedures Referred By Contac t Referred To Contact CT IMAGING Diagnoses Biliary obstruction Obstructive jaundice Mass of pancreas Autoimmune cholangitis Procedures CT PANCREAS/PELVIS W IVCON CT ABD & PELVIS W/CONTRAST Hasmukh Thornton MD [address] [address] [address] Imaging Referral ID Status Reason Start Date Expiration Date V isits Requested Visits Authorized [id number] Closed Auto-Generate d Referral 02/23/2022 07/01/2022 1 1 Reason Comments Cough Cough, bodyaches, ch est congestion x 1 month-ST x 1 day Specialty Diagnoses / Procedures Referred By Contac t Referred To Contact [facility] Diagnoses Examination Procedures OFFICE/OUTPATIENT ESTABLISHED MOD MDM 30-39 MIN MYC URG[facility] [address] [place] [address] Referral ID Status Reason Start Date Expiration Date Visits Re quested Visits Authorized [id number] Closed 06/16/2022 07/01/2022 1 1 Care Teams (unrecognized sec tion and content) Door Repairer Bus Relationship Specialty Start Date End Date Rex Liriano [address] [place] [phone] PCP - General Family Practice 12/15/21 Dany Norm Mortensen [address] [place] [phone] Deputy Commissioner Cardiology 12/15/21 Door Repairer Bus Relationship Specialty Start Date End Date Rex LirianoDO [address] [place] [phone] PCP - General Family Practice 12/15/21 Norm Saenz [address] [place] [phone] Deputy Commissioner Cardiology 12/15/21 Door Repairer Bus Relationship Specialty Start Date End Date Rex LirianoDO [address] [place] [phone] PCP - General Family Practice 12/15/21 Dany Norm Mortensen [address] [place] [phone] Deputy Commissioner Cardiology 12/15/21 Hasmukh Thornton MD [address] [place], [place] [id number] General Surgery 01/04/22 Door Repairer Bus Relationship Specialty Start Date End Date Rex LirianoDO [address] [place] [address] PCP - General Family Practice 12/15/21 Norm Saenz Festus [address] [place] [phone] Deputy Commissioner Cardiology 12/15/21 Hasmukh Thornton MD [address] [place], [place] [id number] General Surgery 01/04/22 Door Repairer Bus Relationship Specialty Start Date End Date Rex Liriano DO [address] [place] [address] PCP - General Family Practice 12/15/21 Dany Norm Mortensen [address] [place] [phone] Deputy Commissioner Cardiology 12/15/21 Hasmukh Thornton MD [address] [place], [place] [id number] General Surgery 01/04/22 Door Repairer Bus Relationship Specialty Start Date End Date Rex Liriano DO [address] [place] [phone] PCP - General Family Practice 12/15/21 Norm Saenz [address] [place] [phone] Deputy Commissioner Cardiology 12/15/21 Hasmukh Thornton MD [address] [place], [place] [id number] General Surgery 01/04/22 Door Repairer Bus Relationship Specialty Start Date End Date Rex Liriano DO [address] [place] [address] PCP - General Family Practice 12/15/21 Dany Norm Mortensen [address] [place] [phone] Deputy Commissioner Cardiology 12/15/21 Hasmukh Thornton MD [address] [place], [place] [id number] General Surgery 01/04/22 Door Repairer Bus Relationship Specialty Start Date End Date Rex Liriano DO [address] [place] [address] PCP - General Family Practice 12/15/21 Norm Saenz [address] [place] [address] Deputy Commissioner Cardiology 12/15/21 Hasmukh Thornton MD [address] [place], [place] [id number] General Surgery 01/04/22 Door Repairer Bus Relationship Specialty Start Date End Date Rex Liriano DO [address] [place] [address] PCP - General Family Practice 12/15/21 Norm Saenz [address] [place] [address] Deputy Commissioner Cardiology 12/15/21 Hasmukh Thornton MD [address] [place], [place] [id number] General Surgery 01/04/22 Door Repairer Bus Relationship Specialty Start Date End Date Rex Liriano DO [address] [place] [phone] PCP - General Family Practice 12/15/21 Norm Saenz [address] [place] [address] Deputy Commissioner Cardiology 12/15/21 Hasmukh Thornton MD [address] [place], [place] [id number] General Surgery 01/04/22 Door Repairer Bus Relationship Specialty Start Date End Date Rex Liriano DO [address] [place] [phone] PCP - General Family Practice 12/15/21 Norm Saenz [address] [place] [address] Deputy Commissioner Cardiology 12/15/21 Hasmukh Thornton MD [address] [place], [place] [id number] General Surgery 01/04/22 Door Repairer Bus Relationship Specialty Start Date End Date Rex Liriano DO [address] [place] [address] PCP - General Family Practice 12/15/21 Norm Saenz [address] [place] [address] Deputy Commissioner Cardiology 12/15/21 Hasmukh Thornton MD [address] [place], [place] [id number] General Surgery 01/04/22 Door Repairer Bus Relationship Specialty Start Date End Date Rex Liriano DO [address] [place] [phone] PCP - General Family Practice 12/15/21 Norm Saenz [address] [place] [address] Deputy Commissioner Cardiology 12/15/21 Hasmukh Thornton MD [address] [place], [place] [id number] General Surgery 01/04/22 Door Repairer Bus Relationship Specialty Start Date End Date Rex Liriano DO [address] [place] [address] PCP - General Family Medicine 12/15/21 Norm Saenz [address] [place] [address] Deputy Commissioner Cardiology 12/15/21 Hasmukh Thornton MD [address] [place], [place] [id number] General Surgery 01/04/22 Door Repairer Bus Relationship Specialty Start Date End Date DeandraRex baroneDO [address] [place] [address] PCP - General Family Medicine 12/15/21 Norm Saenz [address] [place] [address] Deputy Commissioner Cardiology 12/15/21 Hasmukh Thornton MD [address] [place] [address] General Surgery 01/04/22 INFORMATION SOURCE (unrecogn ized section and content) DATE CREATED AUTHOR AUTHOR'S ORGANIZ ATION 06/23/2022 [facility] DATE CREATED AUTHOR AUTHOR'S ORGANIZ ATION 04/13/2023 [facility] ([place]) FOR RECORDS PERTAINING TO PATIENTS WHO ARE [...] BE BASED ON THE PRIMARY CLINICAL RECORDS. [facility]. provides no warranty or guarantee of the accuracy or completeness of information in this document.
--- NOTE | 2023-08-08 12:31 | NEURO_ITS ---
NCS and/or EMG Patient Report Ordering Doctor: Krysta Leiva DATE OF SERVICE: 08/08/23 Cecy presents for electrodiagnostic testing of the lower limbs. She reports numbness and tingling, intermittently in the lower legs. Electrodiagnostic findings: Left peroneal motor nerve demonstrates normal distal latency with reduced amplitude and normal conduction velocity. Right peroneal motor nerve demonstrates normal distal latency, amplitude and conduction velocity. Left and right tibial motor nerve demonstrate normal distal latency and amplitude with normal conduction velocity. There are decreased motor amplitudes on the left side compared to the right. Sensory responses are within normal limits. Normal tibial and peroneal F?waves. H reflex within normal limits. Needle EMG testing was performed in the lower limbs. All muscles tested showed no evidence of denervation with normal motor unit action poten tials. Electrodiagnostic impression: This is an abnormal study in the lower limbs. 1. 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 There is evidence of axonal loss in comparison to the right side. There is no electrodiagnostic evidence for peripheral polyneuropathy. 2. No electrodiagnostic evidence is noted for lumbosacral radiculopathy. Multi Select Codes Neurology Neurology Interp Codes: 60541-99 Musc test done w/n test comp (interp) (2) and 98622-96 Nrv cndj test 9-10 studies (interp)
== END | disposition home or self-care (01) ==
PROVIDERS: PCP Internal Medicine; Referring Provider Internal Medicine; Visit Provider Internal Medicine
DX: R20.2 Paresthesia of skin (principal)
CPT/HCPCS: 95886; 95911

== ENCOUNTER → 2023-08-13 | Outpatient (CLI) | payer OTHER, SELFPAY ==
[2023-08-13] VITALS (16 sets, daily range): BP systolic 129–164; BP diastolic 73–90; PULSE 70–75; RESP 11–16; TEMP 36.4; O2SAT 93–99; BMI 40.5
[2023-08-13 08:51] LABS: Platelet Count 189 K/mm3 (150-450)
[2023-08-13 09:05] LABS: Prothrombin Time (Protime)PT. 12.7 SECONDS (11.7-14.9)
[2023-08-13] MEDS: 0.9% Saline Lock 10 ML Syringe IV ×2 (09:38→10:40)
[2023-08-13] MEDS: hydrOXYzine 10 MG Tablet PO (09:43)
[2023-08-13] MEDS: 0.9% Normal Saline (250mL Bag) 250 ML 15 ML IV (10:02)
[2023-08-13] MEDS: Midazolam 2 MG/2 ML Syringe IV ×2 (10:05→10:21)
[2023-08-13] MEDS: fentaNYL 100 MCG/2 ML Ampul IV (10:05)
[2023-08-13] MEDS: Bupivacaine Mpf 0.5% 30 ML VIAL 5 ML INFILT (10:22)
--- NOTE | 2023-08-13 10:25 | LIVB_PTH ---
PATHOLOGY RESULTS PATIENT: MOHAN LEZAMA LOC: [place] U#:[id number] AGE/SX: 53/F ROOM: RE08/13/[address]: Dr. Daniel Laguna DO : 1970 BED: DIS: 08/13/2023 SPEC #: [id number] RECD: 08/13/23 11:31 STATUS: LUCAS REQ #: [id number] DANK: 08/13/23 10:[address]: Daniel Laguna DEPT: SURGICAL PATHOLOGY RECD BY: Mariana Sauer ENTERED: 08/13/23 11:32 SP TYPE: LIVER BX OTHR DR: Dr. Krysta Leiva, MD Angélica Esposito, DYE RANGE TENDER-C Tissues: Liver, NOS Procedures: PAS with Diastase (control) Trichrome (control) Special Stain Group II PAS Stain (control) Surgery Specimen Level V Retic (control) Iron Stain (control) HEADER OPERATION: CT-guided liver biopsy PRE-OP DIAGNOSIS: MGUS TISSUE SUBMITTED: Liver 18-gauge x3 MICROSCOPIC DIAGNOSIS Liver, CT-guided core biopsy: Liver parenchymal tissue with macro- and microvesicular steatosis. See microscopic description and comment. SJ:mike 08/14/2023 COMMENT Correlation with clinical, radiologic findings, laboratory findings and appropriate follow up are necessary. MICROSCOPIC DESCRIPTION Slides are reviewed. The specimen shows liver parenchymal tissue with preserved lobular architecture. Hepatocytes show moderate macro- and microvesicular steatosis and mild reactive changes. Significant lobular inflammation is not seen. Portal area shows mild to moderate chronic inflammatory cell infiltrates predominantly consists of lymphocytes and rare eosinophils. Interface inflammation is not seen. Iron stain shows absent iron. Reticulin stain shows preserved lobular architecture. Trichrome stain does not show any increased portal, periportal fibrosis or bridging fibrosis. PAS stain with and without diastase does not show any abnormal accumulation of protein. All stains are performed with appropriate matched control. GROSS DESCRIPTION Received is one container labeled with the patient's name and not further designated. The specimen consists of multiple elongated fragments of to soft tissue that in aggregate measure 2.0 x 0.3 x 0.1 cm. The specimen is totally submitted in one cassette. / SALONI:mike 08/13/2023 TC:5 CPT: 37612, 59697 x5
--- NOTE | 2023-08-13 10:38 | PRO.PCM_ITS ---
Procedure Report Date of Procedure: 08/13/23 Assessment & Plan Assessment/Plan (1) Autoimmune pancreatitis: PLAN: PROCEDURE: CT DIRECTED CORE LIVER BIOPSY ORDERING PROVIDER: Dr. Laguna INDICATION: Female, 53 years old. Autoimmune pancreatitis. PROVIDER: DWAYNE Eubanks CONSENT: Written informed consent was obtained having explained the risks, benefits and alternatives in detail with the patient who accepted the risks and agreed to proceed. Laboratory review and clinical assessment was performed. PRE-PROCEDURE SEDATION ASSESSMENT: Current history and physical dictated by referring provider and reviewed. No clinical changes since date of exam. Patient has an ASA Class of 1. PROCEDURAL SEDATION PROTOCOL: The Drugs used were: 2 mg Versed, IV, and 50 mcg Fentanyl, IV. The sedation time was: 23 minutes, starting at 1005 and terminated at 1028. The procedural sedation protocol was independently monitored by the department nurse. RADIATION DOSAGE (If Supplied By Facility): CTDIvol = 24.06 mGy, DLP = 683.90 mGycm Individualized dose optimization techniques were used for this CT. TECHNIQUE: The patient was placed in a supine position. Using CT image guidance with image documentation, a suitable location in the left lobe of the liver was identified. The skin surface was prepped with betadine and draped in a sterile fashion. 0.5% bupivacaine was used for local anesthesia, due to patient allergy to lidocaine. The patient was also premedicated with hydroxyzine orally, as a proactive measure due to allergy to Benadryl. Using an anterior approach, puncture of the liver was uneventful with an 18-gauge core needle system. 3, 18-gauge core samples were obtained, and submitted in formalin to the pathologist for further assessment. The needle was removed. An occlusive sterile dressing was applied. Patient julianna ated the procedure well, and returned to the holding bay for nursing monitoring. IMPRESSION: 1. CT directed core needle biopsy of the liver, using CT image guidance with image documentation as described. 2. Procedural Sedation protocol utilized with independent monitoring. Procedures Radiology Radiology CT Procedures: 68432 Biopsy Liver
== END | disposition home or self-care (01) ==
PROVIDERS: Nurse Practitioner Acute Care; PCP Internal Medicine; Referring Provider Internal Medicine Gastroenterology; Visit Provider Internal Medicine Gastroenterology
DX: K86.1 Other chronic pancreatitis (principal); Z01.818 Encounter for other preprocedural examination; K83.09 Other cholangitis
CPT/HCPCS: 47000; 36415; 77012; 85049; 85610; 85730; 88307; 88313; 99156; J7050; A4216